=== PATIENT | female | born 1975 | race Caucasian/White ===

== ENCOUNTER → 2017-03-07 | Outpatient (CLI) | payer BC ==
[~2017-03-07] MED LIST: AMPH20TA PO; ARMOUR THYROID PO; ASPI-999 PO; ATOR20TA66 PO; AZIT200S47 PO; BIOT25006 PO; BIOT5CAP10 PO; BUTA-234 PO; BUTA1CAP41 PO; CATHETER FLUSH 10 ML SYR IV PRN; CEFD300C3 PO; CHOL10007 PO; CHOL1LIQ SL; CLAR-19 PO; D50KC PO; DEXAMETHASONE PO; DEXT10TA9 PO; DEXT20TA8 PO; DOXYCYLINE; DULO30CA48 PO; ESCI20TA2; ESCI5TAB; ESTR1TAB24 PO; ESTR2TAB PO; ESTROGEN CREAM; FLDR.1T PO; FLT05NA16 NSEACH; FURO20TA4 PO; FURO40TA4 PO; HEPA50002 SQ; HEPARIN; HYDR-3583 PO; HYDR-3720 PO; HYDR15SO6 PO; HYDR1CAP2 PO; HYDR1TAB PO; IOHEXOL 350 MG/ML 100 ML (OMNIPAQUE 350) VIAL IV ONE; KCL10CCR PO; LACT1CAP62 PO; LIOT5TAB3 PO; LORA10TA7 PO; MAGN400T6 PO; METO-352 PO; METR500T PO; MULT-963 PO; NAPR-243; NFBIOT1000 PO; NITR100C3 PO; NS 100 ML (IVPB) BAG IV ONE; OMEP-10; ONDA8TAB13 PO; OXYC-12 PO; PANT40TA2 PO; POTASSIUM PO; PRCD5U PO; PRD10T; PRD5T PO; SENN25TA27 PO; SPIR25TA3 PO; SUCR1TAB PO; SUCR1TAB36 PO; SULF1TAB38 PO; TETRACAINE LOLLIPOPS PO; TRAM50TA2 PO; VITAMIN B12 IM; [UNRECOGNIZED DRUG - OTHER]
--- NOTE | 2017-03-07 14:12 | Diagnostic Imaging Report ---
PROCEDURE: CT chest with contrast only. TECHNIQUE: Multiple contiguous axial images were obtained through the chest after administration of intravenous contrast. INDICATION: Followup lung nodule. 75 mL of Omnipaque 350 is administered intravenously. COMPARISON: 07/02/15 FINDINGS: There are calcified granulomas seen in the superior segment of the left lower lobe. Previously seen nodules in the left lower lobe and right upper lobe are diminished with no significant remnant is seen suggestive of benign etiology. There is no significant consolidation, mass or suspicious nodule seen at this time. The thoracic aorta is normal in caliber. The heart size is normal. There is no mediastinal mass or lymphadenopathy. No hilar or axillary lymphadenopathy. Sections in the upper abdomen demonstrate cholecystectomy clips. Mild diffuse hepatic steatosis is also noted. The osseous structures demonstrate right convexity scoliotic curvature and mild degenerative changes. IMPRESSION: No acute process. Dictated by: Dictated on workstation # [id number]
== END ==
LOC: RAD 11:47
PROVIDERS: ATTEND Family Medicine
DX: J84.10 Pulmonary fibrosis, unspecified (principal)
CPT/HCPCS: 71260

== ENCOUNTER 2017-03-14 10:00 | Outpatient (CLI) | payer BC ==
[~2017-03-14] VITALS: Ht 170.2 cm; Wt 70.3 kg
[~2017-03-14 10:00] MED LIST changes: -CATHETER FLUSH 10 ML SYR IV PRN; -IOHEXOL 350 MG/ML 100 ML (OMNIPAQUE 350) VIAL IV ONE; -NS 100 ML (IVPB) BAG IV ONE
[2017-03-14] MEDS ORDERED: ATOR10TA66 PO (10:17)
[2017-03-14] MEDS ORDERED: METH20TA PO (10:17)
[2017-03-14] MEDS ORDERED: UBID100C17 PO (10:17)
[2017-03-14] MEDS ORDERED: VENL150C PO (10:17)
[2017-03-14] MEDS ORDERED: MULT-141 PO (10:17)
[2017-03-14] MEDS ORDERED: HYDR25TA4 PO (10:17)
[2017-03-14] MEDS ORDERED: QUET25TA PO (10:17)
[2017-03-15] MEDS ORDERED: PANT40TA2 PO (16:57)
== END 2017-03-14 10:53 ==
LOC: PREOP 10:00
PROVIDERS: ATTEND Surgery
DX: Z01.818 Encounter for other preprocedural examination (principal); K62.5 Hemorrhage of anus and rectum; K21.9 Gastro-esophageal reflux disease without esophagitis

== ENCOUNTER 2017-03-15 14:04 | Day surgery (SDC) | payer BC ==
[~2017-03-15] VITALS: Ht 170.2 cm; Wt 70.3 kg
[~2017-03-15 14:04] MED LIST changes: +ATOR10TA66 PO; +HYDR25TA4 PO; +METH20TA PO; +MULT-141 PO; +QUET25TA PO; +UBID100C17 PO; +VENL150C PO
--- OUTSIDE RECORDS SUMMARY | 2017-03-15 14:07 | XMS REPORT | Continuity of Care Document ---
Author Author [facility] Organization [facility] Address Unknown Phone Unavailable Care Team Providers Care Board Machine Set Up Operator Name Role Phone Leon Reyes III PCP [phone] Source Comments Some departments are not documenting in the electronic medical record. If you do not see the information that you expected, contact Release of Information in the Health Information Management department at [phone] for further assistance in locating additional records.[facility] Active Allergies and Adverse Reactions Allergen Noted Date Severity Reactions Comments Adhesive Tape (Rosins) 02/06/2014 Medium RASH Mold Low SEE COMMENTS congestion and headache Pcn 03/01/2013 Medium RASH Pt has tolerated Rocephin in the past Plaquenil 08/28/2015 Medium HIVES Hives all over entire body Current Medications Prescription Sig. Disp. Refills Start End Date Status Date lactobacillus rhamnosus Take 1 Cap by mouth daily Active (GG) (CULTURELLE) 10 with breakfast. billion cell cap butalbital/acetaminophen/ Take 1 Tab by mouth every Active caffeine(+) (FIORICET) 4 hours as needed. 50/325/40 mg tablet dextroamphetamine-ampheta Take 30 mg by mouth twice Active mine (ADDERALL) 20 mg daily tablet estradiol (ESTRACE) 1 mg Take 1 mg by mouth daily. Active tablet Indications: patient stated takes .5 mg every other day MULTIVITAMINS WITH Take 1 Tab by mouth Active FLUORIDE (MULTI-VITAMIN daily. PO) hydrochlorothiazide Take 25 mg by mouth Active (HYDRODIURIL) 25 mg daily. tablet CHOLECALCIFEROL (VITAMIN Place 3 Drops under Active D3) (VITAMIN D3 PO) tongue daily. Each drop is 1000 units predniSONE (DELTASONE) 5 20mg/d x 3 days, 15mg/d x 90 Tab 2 05/18/20 Active mg tablet 3 d, 10mg/d x 3 d, then 16 5mg/d and stay at this dose until f/u Active Problems Problem Noted Date Nonspecific abnormal findings on imaging examination of skull and head 08/28 Overview: MRI unchanged from February 2015 Pain of both hip joints 08/28/2015 Arthralgia of both knees 08/28/2015 Intractable migraine without aura and without status migrainosus 08/28/2015 Cervical spondylitis (HCC) 07/15/2015 Left-sided thoracic back pain 07/15/2015 Disseminated Lyme disease 03/08/2013 Overview: On Claforan 03/08/13 Starts Rocephin for a month 03/15/13 L ast Assessment & Plan: No evidence of intraocular inflammation; does have a papillary conjunctivitis Currently being treated as per Dr. Cesar with IV thru PICC Pt out of Doxycycline; sent to pharmacy in [place]. Rec 100mg BID for now. 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 Agree with daily disposables, but could consider another brand. 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 03/08/2013 Overview: GPC 2+ OD probably from DWSCL 3+ OS due to shell L ast Assessment & Plan: Continue off DWCL Add pataday [facility] [place] shell Resolved Problems Problem Noted Date Resolved Date Cervical stenosis of spine 02/25/2014 07/15/2015 Social History Tobacco Use Types Packs/Day Years Used Date Never Smoker Smokeless Tobacco: Never Used Alcohol Use Drinks/Week oz/Week Comments Yes 0 Standard 0.0 Occassional drinks or equivalent Last Filed Vital Signs Vital Sign Reading Time Taken Blood Pressure 130/82 03/24/2016 10:26 AM CDT Pulse 88 03/24/2016 10:26 AM CDT Temperature 36.8 C (98.3 F) 03/24/2016 10:26 AM CDT Respiratory Rate 20 01/14/2016 7:51 AM CDT Height 1.702 m (5' 7") 05/10/2016 8:08 AM CDT Weight 70.308 kg (155 lb) 05/10/2016 8:08 AM CDT Body Mass Index 24.27 05/10/2016 8:08 AM CDT Oxygen Saturation 100% 01/14/2016 7:51 AM CDT Plan of Care Health Maintenance Due Date Last Done Comments Physical (Comprehensive) 1981 Exam Pertussis Vaccine 1985 Tetanus Vaccine 1991 Cervical Cancer Screening 1995 Breast Cancer Screening 2014 Influenza Vaccine 05/19/2017 Results from Last 3 Months Not on file
--- OUTSIDE RECORDS SUMMARY | 2017-03-15 14:10 | XMS REPORT | Continuity of Care Document ---
Author Author [facility] Organization [facility] Address Unknown Phone Unavailable Allergies Active Description Code Type Severity Reaction Onset Reported/Identified Relationship to Patient Clinical Status Yes hydroxychloroquine [id number] Drug Allergy Unknown N/A 07/01/2015 Yes Penicillins [id number] Drug Allergy Unknown N/A 07/01/2015 Medications Problems Date Dx Coded Attending Type Code Diagnosis Diagnosed By 02/24/2010 Ot 338.29 02/24/2010 Ot 617.0 02/24/2010 Ot 617.1 02/24/2010 Ot 618.4 02/24/2010 Ot 625.6 02/24/2010 Ot 625.8 02/24/2010 Ot 626.8 04/23/2010 Ot 682.2 04/23/2010 Ot 911.5 04/23/2010 Ot E000.8 04/23/2010 Ot E849.0 04/23/2010 Ot E906.4 04/25/2010 Ot 616.10 04/25/2010 Ot 911.4 04/25/2010 Ot E000.8 04/25/2010 Ot E849.0 04/25/2010 Ot E906.4 04/25/2010 Ot V06.1 09/05/2011 Ot 255.10 HYPERALDOSTERONISM, UNSPECIFIED 09/05/2011 Ot 401.9 HYPERTENSION NOS 09/05/2011 Ot 458.9 HYPOTENSION NOS 09/05/2011 Ot 782.3 EDEMA 09/13/2012 Ot 465.9 ACUTE URI NOS 09/13/2012 Ot 786.2 COUGH 05/16/2013 KAI LIU Ot 088.81 LYME DISEASE 06/10/2013 GERMAINE MADDEN, BUSTER Cooney Ot 465.9 ACUTE URI NOS 06/10/2013 GERMAINE MADDEN, BUSTER Cooney Ot 599.0 URIN TRACT INFECTION NOS 06/10/2013 GERMAINE MADDEN, BUSTER Cooney Ot 786.50 CHEST PAIN NOS 07/09/2013 SUSHIL SANCHEZ FLOWER STRIPPER Ot 825.25 FX METATARSAL-CLOSED 07/09/2013 SUSHIL SANCHEZ FLOWER STRIPPER Ot 959.7 LOWER LEG INJURY NOS 07/09/2013 SUSHIL SANCHEZ FLOWER STRIPPER Ot E000.8 OTHER EXTERNAL CAUSE STATUS 07/09/2013 SUSHIL SANCHEZ FLOWER STRIPPER Ot E849.0 ACCIDENT IN HOME 07/09/2013 SUSHIL SANCHEZ FLOWER STRIPPER Ot E885.9 FALL FROM SLIPPING, TRIPPING, OR STUMBLI 09/19/2013 GERMAINE MADDEN, BUSTER Cooney Ot 729.5 PAIN IN LIMB 04/10/2014 YAMILETH MADDEN, PREM Neely Ot 346.90 MIGRAINE UNSPECIFIED W/O INTRACT MGRN W/ 04/10/2014 PREM CARSON MD Ot 780.4 DIZZINESS AND GIDDINESS 10/11/2014 Ot 785.1 10/11/2014 Ot 786.59 10/11/2014 Ot 836.0 10/11/2014 Ot 844.1 10/11/2014 Ot E000.8 10/11/2014 Ot E003.2 10/11/2014 Ot E029.9 10/11/2014 Ot E849.6 10/11/2014 Ot E885.4 10/11/2014 Ot 726.61 10/11/2014 Ot 836.0 10/11/2014 Ot E000.8 10/11/2014 Ot E003.2 10/11/2014 Ot E029.9 10/11/2014 Ot E849.6 10/11/2014 Ot E885.4 10/11/2014 Ot V72.63 10/11/2014 Ot 621.30 10/11/2014 Ot 625.8 10/11/2014 Ot 626.4 10/11/2014 Ot 618.4 10/11/2014 Ot 625.6 10/11/2014 Ot 626.8 10/11/2014 Ot V72.63 10/11/2014 Ot V72.81 10/11/2014 Ot 719.44 10/11/2014 Ot 785.1 10/11/2014 Ot 611.72 10/11/2014 Ot 786.50 10/11/2014 Ot 611.72 10/11/2014 Ot 625.9 10/11/2014 Ot 537.9 10/11/2014 Ot 793.6 10/11/2014 Ot 255.42 10/11/2014 Ot 790.99 10/11/2014 Ot 255.10 10/11/2014 Ot 401.9 10/11/2014 Ot 458.9 10/11/2014 Ot 782.3 10/11/2014 Ot 346.90 10/11/2014 Ot 368.9 10/11/2014 Ot 781.2 10/11/2014 Ot 785.6 10/11/2014 Ot 785.9 10/11/2014 Ot 473.9 10/11/2014 Ot 785.6 10/11/2014 CHARLOTTE LIU DO Ot 719.43 10/11/2014 CHARLOTTE LIU DO Ot 719.45 10/11/2014 CHARLOTTE LIU DO Ot 724.2 10/11/2014 KAI LIU E 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 Ot 379.91 10/11/2014 Ot 088.81 10/11/2014 KAYLEY MADDEN, IRVING P Ot 470 10/11/2014 KAYLEY MADDEN, IRVING P Ot 473.9 10/11/2014 KAYLEY MADDEN, IRVING P Ot 478.0 10/11/2014 KAYLEY MADDEN, IRVING P Ot 780.79 10/11/2014 KAYLEY MADDEN, IRVING P Ot V12.09 10/11/2014 KAYLEY MADDEN, IRVING P Ot V72.63 10/11/2014 KAYLEY MADDEN, IRVING P Ot V72.81 10/11/2014 KAYLEY MADDEN, IRVING P Ot V74.8 10/11/2014 KAYLEY MADDEN, IRVING P Ot 470 10/11/2014 KAYLEY MADDEN, IRVING P Ot 473.2 10/11/2014 KAYLEY MADDEN, IRVING P Ot 474.00 10/11/2014 KAYLEY MADDEN, IRVING P Ot 478.0 10/11/2014 KAI LIUP Ot 723.0 10/11/2014 CHARLOTTE LIU DO Ot 780.93 10/11/2014 CHARLOTTE LIU DO Ot 782.0 10/11/2014 Ot 255.10 10/11/2014 Ot 401.9 10/11/2014 Ot 458.9 10/11/2014 Ot 782.3 10/11/2014 Ot 088.81 10/12/2014 CHARLOTTE LIU DO Ot 088.81 LYME DISEASE 10/12/2014 CHARLOTTE LIU DO Ot 346.90 MIGRAINE UNSPECIFIED W/O INTRACT MGRN W/ 10/12/2014 CHARLOTTE LIU DO Ot 401.9 HYPERTENSION NOS 10/12/2014 ALEXA KNUTSON [place] Torrey Ot 424.0 MITRAL VALVE DISORDER 10/12/2014 CHARLOTTE LIU DO Ot 781.0 ABN INVOLUN MOVEMENT NEC 10/12/2014 CHARLOTTE LIU DO Ot 781.94 FACIAL WEAKNESS 10/13/2014 ALEXA KNUTSON [place] Ot 780.93 10/13/2014 ALEXA KNUTSON [place] Torrey Ot 782.0 11/12/2014 Ot 836.0 11/12/2014 Ot 844.1 11/12/2014 Ot E000.8 11/12/2014 Ot E003.2 11/12/2014 Ot E029.9 11/12/2014 Ot E849.6 11/12/2014 Ot E885.4 11/12/2014 Ot 726.61 11/12/2014 Ot 836.0 11/12/2014 Ot E000.8 11/12/2014 Ot E003.2 11/12/2014 Ot E029.9 11/12/2014 Ot E849.6 11/12/2014 Ot E885.4 11/12/2014 Ot V72.63 11/12/2014 Ot 621.30 11/12/2014 Ot 625.8 11/12/2014 Ot 626.4 11/12/2014 Ot 618.4 11/12/2014 Ot 625.6 11/12/2014 Ot 626.8 11/12/2014 Ot V72.63 11/12/2014 Ot V72.81 11/12/2014 Ot 719.44 11/12/2014 Ot 785.1 11/12/2014 Ot 611.72 11/12/2014 Ot 786.50 11/12/2014 Ot 611.72 11/12/2014 Ot 625.9 11/12/2014 Ot 537.9 11/12/2014 Ot 793.6 11/12/2014 Ot 255.42 11/12/2014 Ot 790.99 11/12/2014 Ot 255.10 11/12/2014 Ot 401.9 11/12/2014 Ot 458.9 11/12/2014 Ot 782.3 11/12/2014 Ot 346.90 11/12/2014 Ot 368.9 11/12/2014 Ot 781.2 11/12/2014 Ot 785.6 11/12/2014 Ot 785.9 11/12/2014 Ot 473.9 11/12/2014 Ot 785.6 11/12/2014 CHARLOTTE LIU DO Ot 719.43 11/12/2014 CHARLOTTE LIU DO Ot 719.45 11/12/2014 CHARLOTTE LIU DO Ot 724.2 11/12/2014 KAI LIU Ot 379.91 11/12/2014 Ot 088.81 11/12/2014 KAYLEY MADDEN, IRVING P Ot 470 11/12/2014 KAYLEY MADDEN, IRVING P Ot 473.9 11/12/2014 KAYLEY MADDEN, IRVING P Ot 478.0 11/12/2014 KAYLEY MADDEN, IRVING P Ot 780.79 11/12/2014 KAYLEY MADDEN, IRVING P Ot V12.09 11/12/2014 KAYLEY MADDEN, IRVING P Ot V72.63 11/12/2014 KAYLEY MADDEN, IRVING P Ot V72.81 11/12/2014 KAYLEY MADDEN, IRVING P Ot V74.8 11/12/2014 KAYLEY MADDEN, IRVING P Ot 470 11/12/2014 KAYLEY MADDEN, IRVING P Ot 473.2 11/12/2014 KAYLEY MADDEN, IRVING P Ot 474.00 11/12/2014 KAYLEY MADDEN, IRVING P Ot 478.0 11/12/2014 KAI LIU Ot 723.0 11/12/2014 CHARLOTTE LIU DO Ot 780.93 11/12/2014 CHARLOTTE LIU DO Ot 782.0 11/16/2014 Ot 346.90 MIGRAINE UNSPECIFIED W/O INTRACT MGRN W/ 11/16/2014 Ot 461.9 ACUTE SINUSITIS NOS 01/08/2015 Ot 836.0 01/08/2015 Ot 844.1 01/08/2015 Ot E000.8 01/08/2015 Ot E003.2 01/08/2015 Ot E029.9 01/08/2015 Ot E849.6 01/08/2015 Ot E885.4 01/08/2015 Ot 726.61 01/08/2015 Ot 836.0 01/08/2015 Ot E000.8 01/08/2015 Ot E003.2 01/08/2015 Ot E029.9 01/08/2015 Ot E849.6 01/08/2015 Ot E885.4 01/08/2015 Ot V72.63 01/08/2015 Ot 621.30 01/08/2015 Ot 625.8 01/08/2015 Ot 626.4 01/08/2015 Ot 618.4 01/08/2015 Ot 625.6 01/08/2015 Ot 626.8 01/08/2015 Ot V72.63 01/08/2015 Ot V72.81 01/08/2015 Ot 719.44 01/08/2015 Ot 785.1 01/08/2015 Ot 611.72 01/08/2015 Ot 786.50 01/08/2015 Ot 611.72 01/08/2015 Ot 625.9 01/08/2015 Ot 537.9 01/08/2015 Ot 793.6 01/08/2015 Ot 255.42 01/08/2015 Ot 790.99 01/08/2015 Ot 255.10 01/08/2015 Ot 401.9 01/08/2015 Ot 458.9 01/08/2015 Ot 782.3 01/08/2015 Ot 346.90 01/08/2015 Ot 368.9 01/08/2015 Ot 781.2 01/08/2015 Ot 785.6 01/08/2015 Ot 785.9 01/08/2015 Ot 473.9 01/08/2015 Ot 785.6 01/08/2015 CHARLOTTE LIU DO Ot 719.43 01/08/2015 CHARLOTTE LIU DO Ot 719.45 01/08/2015 CHARLOTTE LIU DO Ot 724.2 01/08/2015 KAI LIU Ot 379.91 01/08/2015 Ot 088.81 01/08/2015 KAYLEY MADDEN, IRVING Esquivel Ot 470 01/08/2015 KAYLEY MADDEN, IRVING Esquivel Ot 473.9 01/08/2015 KAYLEY MADDEN, IRVING Esquivel Ot 478.0 01/08/2015 KAYLEY MADDEN, IRVING Esquivel Ot 780.79 01/08/2015 KAYLEY MADDEN, IRVING Esquivel Ot V12.09 01/08/2015 KAYLEY MADDEN, IRVING Esquivel Ot V72.63 01/08/2015 KAYLEY MADDEN, IRVING P Ot V72.81 01/08/2015 KAYLEY MADDEN, IRVING Alvin Ot V74.8 01/08/2015 KAYLEY MADDEN, IRVING P Ot 470 01/08/2015 KAYLEY MADDEN, IRVING P Ot 473.2 01/08/2015 KAYLEY MADDEN, IRVING Esquivel Ot 474.00 01/08/2015 KAYLEY MADDEN, IRVING Esquivel Ot 478.0 01/08/2015 KAI LIU Ot 723.0 01/08/2015 CHARLOTTE LIU DO Ot 780.93 01/08/2015 CHARLOTTE LIU DO Ot 782.0 01/12/2015 Ot 836.0 01/12/2015 Ot 844.1 01/12/2015 Ot E000.8 01/12/2015 Ot E003.2 01/12/2015 Ot E029.9 01/12/2015 Ot E849.6 01/12/2015 Ot E885.4 01/12/2015 Ot 726.61 01/12/2015 Ot 836.0 01/12/2015 Ot E000.8 01/12/2015 Ot E003.2 01/12/2015 Ot E029.9 01/12/2015 Ot E849.6 01/12/2015 Ot E885.4 01/12/2015 Ot V72.63 01/12/2015 Ot 621.30 01/12/2015 Ot 625.8 01/12/2015 Ot 626.4 01/12/2015 Ot 618.4 01/12/2015 Ot 625.6 01/12/2015 Ot 626.8 01/12/2015 Ot V72.63 01/12/2015 Ot V72.81 01/12/2015 Ot 719.44 01/12/2015 Ot 785.1 01/12/2015 Ot 611.72 01/12/2015 Ot 786.50 01/12/2015 Ot 611.72 01/12/2015 Ot 625.9 01/12/2015 Ot 537.9 01/12/2015 Ot 793.6 01/12/2015 Ot 255.42 01/12/2015 Ot 790.99 01/12/2015 Ot 255.10 01/12/2015 Ot 401.9 01/12/2015 Ot 458.9 01/12/2015 Ot 782.3 01/12/2015 Ot 346.90 01/12/2015 Ot 368.9 01/12/2015 Ot 781.2 01/12/2015 Ot 785.6 01/12/2015 Ot 785.9 01/12/2015 Ot 473.9 01/12/2015 Ot 785.6 01/12/2015 CHARLOTTE LIU DO Ot 719.43 01/12/2015 CHARLOTTE LIU DO Ot 719.45 01/12/2015 CHARLOTTE LIU DO Ot 724.2 01/12/2015 KAI LIU Ot 379.91 01/12/2015 Ot 088.81 01/12/2015 KAYLEY MADDEN, IRVING P Ot 470 01/12/2015 KAYLEY MADDEN, IRVING P Ot 473.9 01/12/2015 KAYLEY MADDEN, IRVING P Ot 478.0 01/12/2015 KAYLEY MADDEN, IRVING P Ot 780.79 01/12/2015 KAYLEY MADDEN, IRVING P Ot V12.09 01/12/2015 KAYLEY MADDEN, IRVING P Ot V72.63 01/12/2015 KAYLEY MADDEN, IRVING P Ot V72.81 01/12/2015 KAYLEY MADDEN, IRVING P Ot V74.8 01/12/2015 KAYLEY MADDEN, IRVING P Ot 470 01/12/2015 KAYLEY MADDEN, IRVING P Ot 473.2 01/12/2015 KAYLEY MADDEN, IRVING P Ot 474.00 01/12/2015 KAYLEY MADDEN, IRVING P Ot 478.0 01/12/2015 KAI LIU Ot 723.0 01/12/2015 CHARLOTTE LIU DO Ot 780.93 01/12/2015 CHARLOTTE LIU DO Ot 782.0 03/16/2015 Ot 836.0 03/16/2015 Ot 844.1 03/16/2015 Ot E000.8 03/16/2015 Ot E003.2 03/16/2015 Ot E029.9 03/16/2015 Ot E849.6 03/16/2015 Ot E885.4 03/16/2015 Ot 726.61 03/16/2015 Ot 836.0 03/16/2015 Ot E000.8 03/16/2015 Ot E003.2 03/16/2015 Ot E029.9 03/16/2015 Ot E849.6 03/16/2015 Ot E885.4 03/16/2015 Ot V72.63 03/16/2015 Ot 621.30 03/16/2015 Ot 625.8 03/16/2015 Ot 626.4 03/16/2015 Ot 618.4 03/16/2015 Ot 625.6 03/16/2015 Ot 626.8 03/16/2015 Ot V72.63 03/16/2015 Ot V72.81 03/16/2015 Ot 719.44 03/16/2015 Ot 785.1 03/16/2015 Ot 611.72 03/16/2015 Ot 786.50 03/16/2015 Ot 611.72 03/16/2015 Ot 625.9 03/16/2015 Ot 537.9 03/16/2015 Ot 793.6 03/16/2015 Ot 255.42 03/16/2015 Ot 790.99 03/16/2015 Ot 255.10 03/16/2015 Ot 401.9 03/16/2015 Ot 458.9 03/16/2015 Ot 782.3 03/16/2015 Ot 346.90 03/16/2015 Ot 368.9 03/16/2015 Ot 781.2 03/16/2015 Ot 785.6 03/16/2015 Ot 785.9 03/16/2015 Ot 473.9 03/16/2015 Ot 785.6 03/16/2015 CHARLOTTE LIU DO Ot 719.43 03/16/2015 CHARLOTTE LIU DO Ot 719.45 03/16/2015 CHARLOTTE LIU DO Ot 724.2 03/16/2015 KAI LIU Ot 379.91 03/16/2015 Ot 088.81 03/16/2015 KAYLEY MADDEN, IRVING P Ot 470 03/16/2015 KAYLEY MADDEN, IRVING P Ot 473.9 03/16/2015 KAYLEY MADDEN, IRVING P Ot 478.0 03/16/2015 KAYLEY MADDEN, IRVING P Ot 780.79 03/16/2015 KAYLEY MADDEN, IRVING P Ot V12.09 03/16/2015 KAYLEY MADDEN, IRVING Esquivel Ot V72.63 03/16/2015 KAYLEY MADDEN, IRVING P Ot V72.81 03/16/2015 KAYLEY MADDEN, IRVING P Ot V74.8 03/16/2015 KAYLEY MADDEN, IRVING Esquivel Ot 470 03/16/2015 KAYLEY MADDEN, IRVIGN Esquivel Ot 473.2 03/16/2015 KAYLEY MADDEN, IRVING Esquivel Ot 474.00 03/16/2015 KAYLEY MADDEN, IRVING Esquivel Ot 478.0 03/16/2015 KAI LIU Ot 723.0 03/16/2015 CHARLOTTE LIU DO Ot 780.93 03/16/2015 CHARLOTTE LIU DO Ot 782.0 03/17/2015 CHARLOTTE RODGERS DO Ot 346.90 MIGRAINE UNSPECIFIED W/O INTRACT MGRN W / 03/17/2015 CHARLOTTE RODGERS DO Ot 784.0 HEADACHE 05/04/2015 CHARLOTTE LIU DO Ot 611.71 05/12/2015 Ot 621.30 05/12/2015 Ot 625.8 05/12/2015 Ot 626.4 05/12/2015 Ot 618.4 05/12/2015 Ot 625.6 05/12/2015 Ot 626.8 05/12/2015 Ot V72.63 05/12/2015 Ot V72.81 05/12/2015 Ot 719.44 05/12/2015 Ot 785.1 05/12/2015 Ot 611.72 05/12/2015 Ot 786.50 05/12/2015 Ot 611.72 05/12/2015 Ot 625.9 05/12/2015 Ot 537.9 05/12/2015 Ot 793.6 05/12/2015 Ot 255.42 05/12/2015 Ot 790.99 05/12/2015 Ot 255.10 05/12/2015 Ot 401.9 05/12/2015 Ot 458.9 05/12/2015 Ot 782.3 05/12/2015 Ot 346.90 05/12/2015 Ot 368.9 05/12/2015 Ot 781.2 05/12/2015 Ot 785.6 05/12/2015 Ot 785.9 05/12/2015 Ot 473.9 05/12/2015 Ot 785.6 05/12/2015 CHARLOTTE LIU DO Ot 719.43 05/12/2015 CHARLOTTE LIU DO Ot 719.45 05/12/2015 CHARLOTTE LIU DO Ot 724.2 05/12/2015 KAI LIU E 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 Ot 379.91 05/12/2015 Ot 088.81 05/12/2015 KAYLEY MADDEN, IRVING P Ot 470 05/12/2015 KAYLEY MADDEN, IRVING P Ot 473.9 05/12/2015 KAYLEY MADDEN, IRVING P Ot 478.0 05/12/2015 KAYLEY MADDEN, IRVING P Ot 780.79 05/12/2015 KAYLEY MADDEN, IRVING P Ot V12.09 05/12/2015 KAYLEY MADDEN, IRVING P Ot V72.63 05/12/2015 KAYLEY MADDEN, IRVING P Ot V72.81 05/12/2015 KAYLEY MADDEN, IRVING P Ot V74.8 05/12/2015 KAYLEY MADDEN, IRVING P Ot 470 05/12/2015 KAYLEY MADDEN, IRVING P Ot 473.2 05/12/2015 KAYLEY MADDEN, IRVING P Ot 474.00 05/12/2015 KAYLEY MADDEN, IRVING P Ot 478.0 05/12/2015 KAI LIU E 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 Ot 723.0 05/12/2015 CHARLOTTE LIU DO Ot 780.93 05/12/2015 CHARLOTTE LIU DO Ot 782.0 05/12/2015 CHARLOTTE LIU DO Ot 611.71 05/15/2015 CHARLOTTE LIU DO Ot 611.71 06/17/2015 KAI LIU E 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 Ot 723.4 06/17/2015 KAI LIU E 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 Ot 787.20 07/01/2015 Ot 621.30 07/01/2015 Ot 625.8 07/01/2015 Ot 626.4 07/01/2015 Ot 618.4 07/01/2015 Ot 625.6 07/01/2015 Ot 626.8 07/01/2015 Ot V72.63 07/01/2015 Ot V72.81 07/01/2015 Ot 719.44 07/01/2015 Ot 785.1 07/01/2015 Ot 611.72 07/01/2015 Ot 786.50 07/01/2015 Ot 611.72 07/01/2015 Ot 625.9 07/01/2015 Ot 537.9 07/01/2015 Ot 793.6 07/01/2015 Ot 255.42 07/01/2015 Ot 790.99 07/01/2015 Ot 255.10 07/01/2015 Ot 401.9 07/01/2015 Ot 458.9 07/01/2015 Ot 782.3 07/01/2015 Ot 346.90 07/01/2015 Ot 368.9 07/01/2015 Ot 781.2 07/01/2015 Ot 785.6 07/01/2015 Ot 785.9 07/01/2015 Ot 473.9 07/01/2015 Ot 785.6 07/01/2015 CHARLOTTE LIU DO Ot 719.43 07/01/2015 CHARLOTTE LIU DO Ot 719.45 07/01/2015 CHARLOTTE LIU DO Ot 724.2 07/01/2015 KAI LIU E 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 Ot 379.91 07/01/2015 Ot 088.81 07/01/2015 KAYLEY MADDEN, IRVING P Ot 470 07/01/2015 KAYLEY MADDEN, IRVING P Ot 473.9 07/01/2015 KAYLEY MADDEN, IRVING P Ot 478.0 07/01/2015 KAYLEY MADDEN, IRVING P Ot 780.79 07/01/2015 KAYLEY MADDEN, IRVING P Ot V12.09 07/01/2015 KAYLEY MADDEN, IRVING P Ot V72.63 07/01/2015 KAYLEY MADDEN, IRVING P Ot V72.81 07/01/2015 KAYLEY MADDEN, IRVING P Ot V74.8 07/01/2015 KAYLEY MADDEN, IRVING P Ot 470 07/01/2015 KAYLEY MADDEN, IRVING P Ot 473.2 07/01/2015 KAYLEY MADDEN, IRVING P Ot 474.00 07/01/2015 KAYLEY MADDEN, IRVING P Ot 478.0 07/01/2015 KAI LIU E 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 Ot 723.0 07/01/2015 CHARLOTTE LIU DO Ot 780.93 07/01/2015 CHARLOTTE LIU DO Ot 782.0 07/01/2015 CHARLOTTE LIU DO Ot 611.71 07/01/2015 KAI LIU E 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 Ot 723.4 07/01/2015 KAI LIU E 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 Ot 787.20 07/01/2015 JUAN F MADDEN FACC, ALI FACP CCDS Ot A69.20 07/01/2015 JUAN F MADDEN FACC, ALI FACP CCDS Ot R00.2 07/01/2015 JUAN F MADDEN FACC, ALI FACP CCDS Ot R06.00 07/01/2015 JUAN F MADDEN FACC, ALI FACP CCDS Ot R55 07/01/2015 JUAN F MADDEN FACC, ALI FACP CCDS Ot A69.20 07/01/2015 JUAN F MADDEN FACC, ALI FACP CCDS Ot R00.2 07/01/2015 JUAN F MADDEN FACC, ALI FACP CCDS Ot R06.00 07/01/2015 JUAN F MADDEN FACC, ALI FACP CCDS Ot R55 07/01/2015 Ot 255.10 07/01/2015 Ot 401.9 07/01/2015 Ot 458.9 07/01/2015 Ot 782.3 07/01/2015 Ot 088.81 07/01/2015 JUAN F MADDEN FACC, ALI FACP CCDS Ot A69.20 07/01/2015 JUAN F MADDEN FACC, ALI FACP CCDS Ot R00.2 07/01/2015 JUAN F AYALAC, ALI FACP CCDS Ot R06.00 07/01/2015 JUAN F AYALAC, ALI FACP CCDS Ot R55 07/03/2015 CHARLOTTE LIU DO Ot E87.6 HYPOKALEMIA 07/03/2015 CHARLOTTE LIU DO Ot G43.909 MIGRAINE, UNSP, NOT INTRACTABLE, WITHOUT 07/03/2015 CHARLOTTE LIU DO Ot K20.9 ESOPHAGITIS, UNSPECIFIED 07/03/2015 CHARLOTTE LIU DO Ot K22.2 ESOPHAGEAL OBSTRUCTION 07/13/2015 JUAN F AYALAC, ALI FACP CCDS Ot A69.20 07/13/2015 JUAN F AYALAC, ALI FACP CCDS Ot R00.2 07/13/2015 JUAN F MADDEN FACC, ALI FACP CCDS Ot R06.00 07/13/2015 JUAN F MADDEN FACC, ALI FACP CCDS Ot R55 07/15/2015 JUAN F MADDEN FACC, ALI FACP CCDS Ot A69.20 07/15/2015 JUAN F MADDEN FACC, ALI FACP CCDS Ot R00.2 07/15/2015 JUAN F MADDEN FACC, ALI FACP CCDS Ot R06.00 07/15/2015 JUAN F MADDEN FACC, ALI FACP CCDS Ot R55 07/16/2015 JUAN F AYALA, ALI FACP CCDS Ot Q24.5 MALFORMATION OF CORONARY VESSELS 07/16/2015 JUAN F MADDEN FACC, ALI FACP CCDS Ot R00.2 PALPITATIONS 07/16/2015 JUAN F MADDEN FACC, ALI FACP CCDS Ot R06.02 SHORTNESS OF BREATH 07/16/2015 JUAN F MADDEN FACC, ALI FACP CCDS Ot R07.89 OTHER CHEST PAIN 07/16/2015 JUAN F MADDEN FACC, ALI FACP CCDS Ot Z79.899 OTHER GREENS KEEPER (CURRENT) DRUG THERAPY 07/21/2015 CHARLOTET LIU DO Ot M51.34 08/05/2015 JUAN F MADDEN FACC, ALI FACP CCDS Ot A69.20 08/05/2015 JUAN F MADDEN FACC, ALI FACP CCDS Ot R00.2 08/05/2015 JUAN F MADDEN FACC, ALI FACP CCDS Ot R06.00 08/05/2015 JUAN F AYALA, ALI FACP CCDS Ot R55 09/09/2015 CHARLOTTE LIU DO Ot R06.00 09/28/2015 JUAN F AYALA, ALI FACP CCDS Ot A69.20 LYME DISEASE, UNSPECIFIED 09/28/2015 JUAN F AYALA, ALI FACP CCDS Ot R00.2 PALPITATIONS 09/28/2015 JUAN F AYALA, ALI FACP CCDS Ot R06.00 DYSPNEA, UNSPECIFIED 09/28/2015 JUAN F AYALA, ALI FACP CCDS Ot R55 SYNCOPE AND COLLAPSE 03/30/2016 Ot 719.44 JOINT PAIN-HAND 03/30/2016 Ot 785.1 PALPITATIONS 03/30/2016 Ot 611.72 LUMP OR MASS IN BREAST 03/30/2016 Ot 786.50 CHEST PAIN NOS 03/30/2016 Ot 611.72 LUMP OR MASS IN BREAST 03/30/2016 Ot 625.9 FEM GENITAL SYMPTOMS NOS 03/30/2016 Ot 537.9 GASTRODUODENAL DIS NOS 03/30/2016 Ot 793.6 NOSP (ABN) FINDINGS ON RADIOLOGICAL OT 03/30/2016 Ot 255.42 MINERALOCORTICOID DEFICIENCY 03/30/2016 Ot 790.99 BLOOD EXAM - OTH NONSPECIFIC FINDINGS 03/30/2016 Ot 255.10 HYPERALDOSTERONISM, UNSPECIFIED 03/30/2016 Ot 401.9 HYPERTENSION NOS 03/30/2016 Ot 458.9 HYPOTENSION NOS 03/30/2016 Ot 782.3 EDEMA 03/30/2016 Ot 346.90 MIGRAINE UNSPECIFIED W/O INTRACT MGRN W/ 03/30/2016 Ot 368.9 VISUAL DISTURBANCE NOS 03/30/2016 Ot 781.2 ABNORMALITY OF GAIT 03/30/2016 Ot 785.6 ENLARGEMENT LYMPH NODES 03/30/2016 Ot 785.9 CARDIOVAS SYS SYMP NEC 03/30/2016 Ot 473.9 CHRONIC SINUSITIS NOS 03/30/2016 Ot 785.6 ENLARGEMENT LYMPH NODES 03/30/2016 CHARLOTTE LIU DO Ot 719.43 JOINT PAIN-FOREARM 03/30/2016 CHARLOTTE LIU DO Ot 719.45 JOINT PAIN-PELVIS 03/30/2016 CHARLOTTE LIU DO Ot 724.2 LUMBAGO 03/30/2016 KAI LIU Ot 379.91 PAIN IN OR AROUND EYE 03/30/2016 Ot 088.81 LYME DISEASE 03/30/2016 IRVING ZALDIVAR MD Ot 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 03/30/2016 IRVING ZALDIVAR MD Ot 473.9 CHRONIC SINUSITIS NOS 03/30/2016 IRVING ZALDIVAR MD Ot 478.0 HYPERTRPH NASAL TURBINAT 03/30/2016 IRVING ZALDIVAR MD Ot 780.79 OTH MALAISE FATIGUE 03/30/2016 IRVING ZALDIVAR MD Ot V12.09 PERSONAL HISTORY OTH SPEC INFECT ELIZABETH 03/30/2016 IRVING ZALDIVAR MD Ot V72.63 PRE-PROCEDURAL LABORATORY EXAMINATION 03/30/2016 IRVING ZALDIVAR MD Ot V72.81 [id number] CARDIOVASCULAR 03/30/2016 IRVING ZALDIVAR MD Ot V74.8 SCREEN-BACTERIAL DIS NEC 03/30/2016 IRVING ZALDIVAR MD Ot 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 03/30/2016 IRVING ZALDIVAR MD Ot 473.2 CHR ETHMOIDAL SINUSITIS 03/30/2016 IRVING ZALDIVAR MD Ot 474.00 CHRONIC TONSILLITIS 03/30/2016 IRVING ZALDIVAR MD Ot 478.0 HYPERTRPH NASAL TURBINAT 03/30/2016 LIU, KAI L E 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 Ot 723.0 CERVICAL SPINAL STENOSIS 03/30/2016 CHARLOTTE LIU DO Ot 780.93 MEMORY LOSS 03/30/2016 CHARLOTTE LIU DO Ot 782.0 SKIN SENSATION DISTURB 03/30/2016 CHARLOTTE LIU DO Ot 611.71 MASTODYNIA 03/30/2016 KAI LIU E 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 Ot 723.4 BRACHIAL NEURITIS NOS 03/30/2016 KAI LIU E 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 Ot 787.20 DYSPHAGIA, UNSPECIFIED 03/30/2016 JUAN F AYALAC, ALI FACP CCDS Ot A69.20 LYME DISEASE, UNSPECIFIED 03/30/2016 JUAN F MADDEN FACC, ALI FACP CCDS Ot R00.2 PALPITATIONS 03/30/2016 JUAN F AYALAC, ALI FACP CCDS Ot R06.00 DYSPNEA, UNSPECIFIED 03/30/2016 JUAN F MADDEN FACC, ALI FACP CCDS Ot R55 SYNCOPE AND COLLAPSE 03/30/2016 JUAN F MADDEN FACC, ALI FACP CCDS Ot A69.20 LYME DISEASE, UNSPECIFIED 03/30/2016 JUAN F MADDEN FACC, ALI FACP CCDS Ot R00.2 PALPITATIONS 03/30/2016 JUAN F MADDEN FACC, ALI FACP CCDS Ot R06.00 DYSPNEA, UNSPECIFIED 03/30/2016 JUAN F MADDEN FACC, ALI FACP CCDS Ot R55 SYNCOPE AND COLLAPSE 03/30/2016 CHARLOTTE LIU DO Ot M51.34 OTHER INTERVERTEBRAL DISC DEGENERATION , 03/30/2016 CHARLOTTE LIU DO Ot R06.00 DYSPNEA, UNSPECIFIED 03/30/2016 JUAN F MADDEN FACC, ALI FACP CCDS Ot A69.20 LYME DISEASE, UNSPECIFIED 03/30/2016 JUAN F MADDEN FACC, ALI FACP CCDS Ot R00.2 PALPITATIONS 03/30/2016 JUAN F MADDEN FACC, ALI FACP CCDS Ot R06.00 DYSPNEA, UNSPECIFIED 03/30/2016 JUAN F MADDEN FACC, ALI FACP CCDS Ot R55 SYNCOPE AND COLLAPSE 03/31/2016 KAI LIU E 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 Ot M25.561 PAIN IN RIGHT KNEE 04/05/2016 KAI LIU E 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 Ot M25.561 PAIN IN RIGHT KNEE 04/14/2016 KAI LIU E 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 Ot M25.561 PAIN IN RIGHT KNEE 08/22/2016 Ot 785.1 PALPITATIONS 08/22/2016 Ot 611.72 LUMP OR MASS IN BREAST 08/22/2016 Ot 786.50 CHEST PAIN NOS 08/22/2016 Ot 611.72 LUMP OR MASS IN BREAST 08/22/2016 Ot 625.9 FEM GENITAL SYMPTOMS NOS 08/22/2016 Ot 537.9 GASTRODUODENAL DIS NOS 08/22/2016 Ot 793.6 NOSP (ABN) FINDINGS ON RADIOLOGICAL OT 08/22/2016 Ot 255.42 MINERALOCORTICOID DEFICIENCY 08/22/2016 Ot 790.99 BLOOD EXAM - OTH NONSPECIFIC FINDINGS 08/22/2016 Ot 255.10 HYPERALDOSTERONISM, UNSPECIFIED 08/22/2016 Ot 401.9 HYPERTENSION NOS 08/22/2016 Ot 458.9 HYPOTENSION NOS 08/22/2016 Ot 782.3 EDEMA 08/22/2016 Ot 346.90 MIGRAINE UNSPECIFIED W/O INTRACT MGRN W/ 08/22/2016 Ot 368.9 VISUAL DISTURBANCE NOS 08/22/2016 Ot 781.2 ABNORMALITY OF GAIT 08/22/2016 Ot 785.6 ENLARGEMENT LYMPH NODES 08/22/2016 Ot 785.9 CARDIOVAS SYS SYMP NEC 08/22/2016 Ot 473.9 CHRONIC SINUSITIS NOS 08/22/2016 Ot 785.6 ENLARGEMENT LYMPH NODES 08/22/2016 CHARLOTTE LIU DO Ot 719.43 JOINT PAIN-FOREARM 08/22/2016 CHARLOTTE LIU DO Ot 719.45 JOINT PAIN-PELVIS 08/22/2016 CHARLOTTE LIU DO Ot 724.2 LUMBAGO 08/22/2016 KAI LIU E 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 Ot 379.91 PAIN IN OR AROUND EYE 08/22/2016 Ot 088.81 LYME DISEASE 08/22/2016 IRVING ZALDIVAR MD Ot 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 08/22/2016 IRVING ZALDIVAR MD Ot 473.9 CHRONIC SINUSITIS NOS 08/22/2016 IRVING ZALDIVAR MD Ot 478.0 HYPERTRPH NASAL TURBINAT 08/22/2016 IRVING ZALDIVAR MD Ot 780.79 OTH MALAISE FATIGUE 08/22/2016 IRVING ZALDIVAR MD Ot V12.09 PERSONAL HISTORY OTH SPEC INFECT ELIZABETH 08/22/2016 IRVING ZALDIVAR MD Ot V72.63 PRE-PROCEDURAL LABORATORY EXAMINATION 08/22/2016 IRVING ZALDIVAR MD Ot V72.81 [id number] CARDIOVASCULAR 08/22/2016 IRVING ZALDIVAR MD Ot V74.8 SCREEN-BACTERIAL DIS NEC 08/22/2016 IRVING ZALDIVAR MD Ot 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 08/22/2016 IRVING ZALDIVAR MD Ot 473.2 CHR ETHMOIDAL SINUSITIS 08/22/2016 IRVING ZALDIVAR MD Ot 474.00 CHRONIC TONSILLITIS 08/22/2016 IRVING ZALDIVAR MD Ot 478.0 HYPERTRPH NASAL TURBINAT 08/22/2016 KAI LIU E 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 Ot 723.0 CERVICAL SPINAL STENOSIS 08/22/2016 CHARLOTTE LIU DO Ot 780.93 MEMORY LOSS 08/22/2016 CHARLOTTE LIU DO Ot 782.0 SKIN SENSATION DISTURB 08/22/2016 CHARLOTTE LIU DO Ot 611.71 MASTODYNIA 08/22/2016 KAI LIU E 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 Ot 723.4 BRACHIAL NEURITIS NOS 08/22/2016 KAI LIU E 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 Ot 787.20 DYSPHAGIA, UNSPECIFIED 08/22/2016 JUAN F AYALA, ALI FACP CCDS Ot A69.20 LYME DISEASE, UNSPECIFIED 08/22/2016 JUAN F AYALA, ALI FACP CCDS Ot R00.2 PALPITATIONS 08/22/2016 JUAN F AYALA, MARCI FACP CCDS Ot R06.00 DYSPNEA, UNSPECIFIED 08/22/2016 JUAN F MADDEN FAC, ALI FACP CCDS Ot R55 SYNCOPE AND COLLAPSE 08/22/2016 JUAN F AYALA, ALI FACP CCDS Ot A69.20 LYME DISEASE, UNSPECIFIED 08/22/2016 JUAN F AYALA, ALI FACP CCDS Ot R00.2 PALPITATIONS 08/22/2016 JUAN F MADDEN FACC, ALI FACP CCDS Ot R06.00 DYSPNEA, UNSPECIFIED 08/22/2016 JUAN F AYALA, ALI FACP CCDS Ot R55 SYNCOPE AND COLLAPSE 08/22/2016 CHARLOTTE LIU DO Ot M51.34 OTHER INTERVERTEBRAL DISC DEGENERATION , 08/22/2016 CHARLOTTE LIU DO Ot R06.00 DYSPNEA, UNSPECIFIED 08/22/2016 JUAN F AYALAC, [facility] FACP CCDS Ot A69.20 LYME DISEASE, UNSPECIFIED 08/22/2016 JUAN F MADDEN [facility] CCDS Ot R00.2 PALPITATIONS 08/22/2016 JUAN F MADDEN [facility] [facility] CCD[facility] Ot R06.00 DYSPNEA, UNSPECIFIED 08/22/2016 JUAN F MADDEN [facility] FACP CCDS Ot R55 SYNCOPE AND COLLAPSE 08/22/2016 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 E 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 Ot M25.561 PAIN IN RIGHT KNEE 08/23/2016 BHUPENDRA DESAI MD Ot M54.2 CERVICALGIA 08/23/2016 BHUPENDRA DESAI MD Ot Z12.31 ENCNTR SCREEN MAMMOGRAM FOR MALIGNANT NE 08/23/2016 BHUPENDRA DESAI MD Ot Z98.1 ARTHRODESIS STATUS 03/07/2017 Ot 346.90 MIGRAINE UNSPECIFIED W/O INTRACT MGRN W/ 03/07/2017 Ot 368.9 VISUAL DISTURBANCE NOS 03/07/2017 Ot 781.2 ABNORMALITY OF GAIT 03/07/2017 Ot 785.6 ENLARGEMENT LYMPH NODES 03/07/2017 Ot 785.9 CARDIOVAS SYS SYMP NEC 03/07/2017 Ot 473.9 CHRONIC SINUSITIS NOS 03/07/2017 Ot 785.6 ENLARGEMENT LYMPH NODES 03/07/2017 CHARLOTTE LIU DO Ot 719.43 JOINT PAIN-FOREARM 03/07/2017 CHARLOTTE LIU DO Ot 719.45 JOINT PAIN-PELVIS 03/07/2017 CHARLOTTE LIU DO Ot 724.2 LUMBAGO 03/07/2017 KAI LIU E 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 Ot 379.91 PAIN IN OR AROUND EYE 03/07/2017 Ot 088.81 LYME DISEASE 03/07/2017 IRVING ZALDIVAR MD Ot 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 03/07/2017 IRVING ZALDIVAR MD Ot 473.9 CHRONIC SINUSITIS NOS 03/07/2017 IRVING ZALDIVAR MD Ot 478.0 HYPERTRPH NASAL TURBINAT 03/07/2017 IRVING ZALDIVAR MD Ot 780.79 OTH MALAISE FATIGUE 03/07/2017 IRVING ZALDIVAR MD Ot V12.09 PERSONAL HISTORY OTH SPEC INFECT ELIZABETH 03/07/2017 IRVING ZALDIVAR MD Ot V72.63 PRE-PROCEDURAL LABORATORY EXAMINATION 03/07/2017 IRVING ZALDIVAR MD Ot V72.81 [id number] CARDIOVASCULAR 03/07/2017 IRVING ZALDIVAR MD Ot V74.8 SCREEN-BACTERIAL DIS NEC 03/07/2017 IRVING ZALDIVAR MD Ot 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 03/07/2017 IRVING ZALDIVAR MD Ot 473.2 CHR ETHMOIDAL SINUSITIS 03/07/2017 IRVING ZALDIVAR MD Ot 474.00 CHRONIC TONSILLITIS 03/07/2017 IRVING ZALDIVAR MD Ot 478.0 HYPERTRPH NASAL TURBINAT 03/07/2017 KAI LIU E 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 Ot 723.0 CERVICAL SPINAL STENOSIS 03/07/2017 CHARLOTTE LIU DO Ot 780.93 MEMORY LOSS 03/07/2017 CHARLOTTE LIU DO Ot 782.0 SKIN SENSATION DISTURB 03/07/2017 CHARLOTTE LIU DO Ot 611.71 MASTODYNIA 03/07/2017 KAI LIU E 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 Ot 723.4 BRACHIAL NEURITIS NOS 03/07/2017 KAI LIU E 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 Ot 787.20 DYSPHAGIA, UNSPECIFIED 03/07/2017 JUAN F AYALA, ALI FACP CCDS Ot A69.20 LYME DISEASE, UNSPECIFIED 03/07/2017 JUAN F MADDEN FAC, ALI FACP CCDS Ot R00.2 PALPITATIONS 03/07/2017 JUAN F MADDEN [facility], ALI FACP CCDS Ot R06.00 DYSPNEA, UNSPECIFIED 03/07/2017 JUAN F MADDEN FAC, ALI FACP CCDS Ot R55 SYNCOPE AND COLLAPSE 03/07/2017 JUAN F MADDEN FAC, ALI FACP CCDS Ot A69.20 LYME DISEASE, UNSPECIFIED 03/07/2017 JUAN F MADDEN [facility], ALI FACP CCDS Ot R00.2 PALPITATIONS 03/07/2017 JUAN F MADDEN FAC, ALI FACP CCDS Ot R06.00 DYSPNEA, UNSPECIFIED 03/07/2017 JUAN F MADDEN FAC, ALI FACP CCDS Ot R55 SYNCOPE AND COLLAPSE 03/07/2017 CHARLOTTE LIU DO Ot M51.34 OTHER INTERVERTEBRAL DISC DEGENERATION , 03/07/2017 CHARLOTTE LIU DO Ot R06.00 DYSPNEA, UNSPECIFIED 03/07/2017 JUAN F AYALA, ALI FACP CCDS Ot A69.20 LYME DISEASE, UNSPECIFIED 03/07/2017 JUAN F MADDEN FACC, MARCI FACP CCDS Ot R00.2 PALPITATIONS 03/07/2017 JUAN F MADDEN FACC, MARCI FACP CCDS Ot R06.00 DYSPNEA, UNSPECIFIED 03/07/2017 JUAN F MADDEN FACC, MARCI FACP CCDS Ot R55 SYNCOPE AND COLLAPSE 03/07/2017 KAI LIU E 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 Ot M25.561 PAIN IN RIGHT KNEE 03/07/2017 BHUPENDRA DESAI MD Ot M54.2 CERVICALGIA 03/07/2017 BHUPENDRA DESAI MD Ot Z12.31 ENCNTR SCREEN MAMMOGRAM FOR MALIGNANT NE 03/07/2017 BHUPENDRA DESAI MD Ot Z98.1 ARTHRODESIS STATUS 03/08/2017 BHUPENDRA DESAI MD Ot J84.10 PULMONARY FIBROSIS, UNSPECIFIED Procedures Results Encounters ACCT No. Visit Date/Time Discharge Status Pt. Type Provider Facility Loc./Unit Complaint [id number] 07/24/2015 06:58:00 2015 00:01:00 DIS Outpatient MARCI ROGEL MD, FACC FACP CCDS Via [facility] PALP,SYNCOPE [id number] 07/16/2015 06:48:00 2014 16:40:00 DIS Outpatient MARCI ROGEL MD, FACC FACAlvin CCDS Via [facility] CEDEÑO,CP,PALPITATIONS [id number] 07/10/2015 16:17:00 2014 23:59:59 CLS Outpatient CHARLOTTE LIU DO Via [facility] RAD DDD,DYSPNEA [id number] 07/01/2015 14:25:00 2014 23:59:59 CLS Outpatient CHARLOTTE LIU DO Via [facility] CHEST PAIN [id number] 06/30/2015 07:59:00 2014 23:59:59 CLS Outpatient MARCI ROGEL MD, FACC FACP CCDS Via [facility] CARD LYME DISEASE, PALPITATIONS , CEDEÑO, SYNCOPE [id number] 06/26/2015 07:42:00 2014 23:59:59 CLS Outpatient MARCI ROGEL MD, FACC FACP CCDS [facility] CARD LYME DISEASE, PALPITATIONS , CEDEÑO, SYNCOPE [id number] 06/02/2015 08:55:00 2014 23:59:59 CLS Outpatient KAI LIU Via [facility] RAD CERVICAL PAIN,RADICULOPATHY , DIFFICULTY SWALLOWING [id number] 04/30/2015 12:45:00 2014 23:59:59 CLS Outpatient CHARLOTTE LIU DO Via [facility] RAD SCREENING [id number] 03/16/2015 21:29:00 2014 02:06:00 DIS Emergency CHARLOTTE RODGERS DO Via [facility] ER HEADACHE [id number] 10/13/2014 16:36:00 2014 23:59:59 CLS Outpatient KAI BENNETT APRN Via [facility] QUICK [id number] 10/11/2014 12:59:00 2014 15:35:00 DIS Inpatient CHARLOTTE LIU DO Via [facility] 4TH LEFT SIDED FACIAL DROOP, TREMOR, HEADACHE [id number] 09/16/2014 13:34:00 2013 23:59:59 CLS Outpatient CHARLOTTE LIU DO Via [facility] RAD MEMORY LOSS, PARASTHESIA [id number] 04/10/2014 08:39:00 2013 10:08:00 DIS Emergency YAMILETH MADDEN, PREM Neely Via [facility] ER HEADACHE/LIGHTHEADED [id number] 09/27/2013 12:28:00 2013 23:59:59 CLS Outpatient KAI LIU Via [facility] RAD NECK PAIN,RT ARM PAIN [id number] 09/19/2013 19:03:00 2013 22:13:00 DIS Emergency GERMAINE MADDEN, BUSTER Cooney Via [facility] ER R ARM TINGLY [id number] 08/30/2013 06:25:00 2012 23:59:59 CLS Outpatient KAYLEY MADDEN, IRVING Esquivel [facility] SDC CHRONIC SINUSITIS;DEVIATED SEPTUM; SEE NOTES [id number] 08/26/2013 07:22:00 2012 23:59:59 CLS Outpatient KAYLEY MADDEN, IRVING Esquivel [facility] PREOP CHRONIC SINUSITIS;DEVIEATED SEPTUM; SEE NOTES [id number] 07/09/2013 21:34:00 2012 22:16:00 DIS Emergency SUSHIL SANCHEZ APRN Via [facility] ER POSS BROKEN TOE ON L FOOT [id number] 06/10/2013 16:46:00 2012 20:21:00 DIS Emergency GERMAINE MADDEN, BUSTER Cooney Via [facility] ER CONGESTION, CHEST PAIN, AND LYMES DISEASE [id number] 05/13/2013 10:29:00 2012 00:01:00 DIS Outpatient KAI LIU Via [facility] SURG RCR BORRELIOSIS [id number] 03/07/2013 13:12:00 2012 23:59:59 CLS Outpatient KAI LIU Via [facility] RAD RT EYE PAIN [id number] 01/17/2013 15:59:00 2012 23:59:59 CLS Outpatient CHARLOTTE LIU DO Via [facility] RAD LUMBALGO L HIP PAIN, L WRIST PAIN [id number] 03/15/2017 12:30:00 PEN Preadmit SALINA BARKLEY MD [facility] ENDO RECTAL BLEEDING/REFLUX/DYSPHAGIA [id number] 03/13/2017 11:15:00 PEN Preadmit SALINA BARKLEY MD Via [facility] RAD THYROID MASS, NECK MASS [id number] 03/07/2017 11:47:00 ACT Outpatient BHUPENDRA DESAI MD Via [facility] RAD HX LUNG NODULE [id number] 02/15/2017 10:30:00 PEN Preadmit BHUPENDRA DESAI MD [facility] RAD SCREENING [id number] 08/22/2016 11:28:00 ACT Outpatient BHUPENDRA DESAI MD [facility] RAD CERVICAL NECK PAIN, HX OF CERVICAL FUSION [id number] 03/30/2016 15:01:00 ACT Outpatient KAI LIU Via [facility] RAD R KNEE PAIN,M25.561 [id number] 09/29/2015 11:30:00 PEN Preadmit JUAN F MADDEN FACC , MARCI MANE CCDS Via [facility] CARD PALP,SYNCOPE [id number] 08/24/2015 13:56:00 ACT Outpatient CHARLOTTE LIU DO Via [facility] RT DDD,DYSPNEA [id number] 11/16/2014 16:40:00 Document Registration [id number] 10/11/2014 19:06:00 Document Registration [id number] 10/11/2014 19:06:00 Document Registration [id number] 10/11/2014 19:06:00 Document Registration [id number] 10/11/2014 19:06:00 Document Registration [id number] 10/11/2014 09:42:00 Document Registration [id number] 10/11/2014 09:41:00 Document Registration [id number] 05/17/2013 00:00:00 Document Registration [id number] 09/13/2012 05:44:00 Document Registration [id number] 07/13/2012 08:05:00 Document Registration [id number] 06/18/2012 12:51:00 Document Registration [id number] 03/02/2012 09:11:00 Document Registration [id number] 09/06/2011 00:00:00 Document Registration [id number] 07/20/2011 07:46:00 Document Registration [id number] 07/13/2011 08:10:00 Document Registration [id number] 07/11/2011 09:54:00 Document Registration [id number] 06/09/2011 08:01:00 Document Registration [id number] 06/07/2011 16:36:00 Document Registration [id number] 04/06/2011 08:00:00 Document Registration [id number] 03/30/2011 12:45:00 Document Registration [id number] 03/03/2011 10:16:00 Document Registration [id number] 03/02/2011 15:49:00 Document Registration [id number] 04/25/2010 09:33:00 Document Registration [id number] 04/23/2010 18:27:00 Document Registration [id number] 02/22/2010 05:45:00 Document Registration [id number] 02/16/2010 09:33:00 Document Registration [id number] 02/01/2010 13:15:00 Document Registration [id number] 01/29/2010 12:48:00 Document Registration [id number] 11/09/2009 12:27:00 Document Registration [id number] 11/04/2009 08:28:00 Document Registration [id number] 05/20/2009 12:55:00 Document Registration
[2017-03-15] MEDS ORDERED: FLUMAZENIL (ROMAZICON) 0.1 MG/ML 5 ML VIAL INJ PRN (14:30)
[2017-03-15] MEDS ORDERED: NS IV 500 ML 500 ML IV SCH (14:30)
[2017-03-15] MEDS ORDERED: HURRICAINE EXT TUBE (BENZOCAINE) XX PRN (14:30)
[2017-03-15] MEDS ORDERED: NALOXONE 0.4 MG/ML 1 ML (NARCAN) VIAL IVP PRN (14:30)
[2017-03-15] MEDS ORDERED: NS IV 500 ML 500 ML ONE (14:36)
--- NOTE | 2017-03-15 14:52 | Conscious Sedation/ASA ---
Conscious Sedation Pre-Proced Time Reviewed: 14:45 ASA Class: 2 Airway Mallampati Classification: ([place] appropriate class) I. II. III, IV Lungs Heart ASA score ASA 1: a normal healthy patient ASA 2: a patient with a mild systemic disease (mid diabetes, controlled hypertension, obesity ASA 3: a patient with a severe systemic disease that limits activity (angina , COPD, prior Myocardial infarction) ASA 4: a patient with an incapacitating disease that is a constant threat to life (CHF, renal failure) ASA 5: a moribund patient not expected to survive 24 hrs. (ruptured aneurysm) ASA 6: a declared brain patient whose organs are being harvested. For emergent operations, add the letter E after the classification Grade 2 Sedation Plan: Analgesia, Amnesia, Plan communicated to team members, Discussed options with patient/fam, Discussed risks with patient/fam Note The patient is an appropriate candidate to undergo the planned procedure, sedation, and anesthesia. The patient immediately re-assessed prior to indication. SALINA BARKLEY MD Mar 15, 2017 2:52 pm
--- NOTE | 2017-03-15 14:53 | Progress Note-Pre Operative ---
Pre-Operative Progress Note H&P Reviewed The H&P was reviewed, patient examined and no changes noted. Date Seen by Provider: Mar 15, 2017 Time Seen by Provider: 14:45 Date H&P Reviewed: Mar 15, 2017 Time H&P Reviewed: 14:45 Pre-Operative Diagnosis: dysphagia, rectal bleed SALINA BARKLEY MD Mar 15, 2017 2:53 pm
[2017-03-15 14:55] VITALS: BP 131/87
[2017-03-15] MEDS ORDERED: morphine INJ 10 MG/ML 1ML (SYR OR VIAL) IV PRN (15:00)
[2017-03-15] MEDS ORDERED: ACETAMINOPHEN 325 MG TABLET/CAPLET (TYLENOL) PO PRN (15:00)
[2017-03-15] MEDS ORDERED: HYDROcodone/APAP 5 MG/325 MG (LORTAB) TAB PO PRN (15:00)
[2017-03-15] MEDS ORDERED: ONDANSETRON 4 MG/2 ML (SDV) Z0FRAN IV PRN (15:00)
[2017-03-15] MEDS ORDERED: fentaNYL INJECTION 100 MCG/2 ML AMP ONE ×3 (15:35→16:24)
[2017-03-15] MEDS ORDERED: LIDOCAINE JELLY 2% (XYLOCAINE) 5 ML TUBE ONE (15:35)
[2017-03-15] MEDS ORDERED: HURRICAINE EXT TUBE (BENZOCAINE) ONE (15:36)
[2017-03-15] MEDS ORDERED: MIDAZOLAM 2 MG/2 ML (VERSED) VIAL ONE ×6 (15:36→16:19)
[2017-03-15] MEDS: fentaNYL INJECTION 100 MCG/2 ML AMP IVP PRN ×6 (15:50→16:30)
[2017-03-15] MEDS: MIDAZOLAM 2 MG/2 ML (VERSED) VIAL IVP PRN ×6 (15:57→16:23)
[2017-03-15] MEDS: LIDOCAINE JELLY 2% (XYLOCAINE) 5 ML TUBE MM PRN ×2 (16:10→16:24)
--- NOTE | 2017-03-15 16:56 | Progress Note-Post Operative ---
Post-Operative Progess Note Surgeon (s)/Dieing Out Machine Operator (s) Surgeon SALINA BARKLEY MD Dieing Out Machine Operator: none Pre-Operative Diagnosis dysphagia, rectal bleed Post-Operative Diagnosis reflux esophagitis(class B), no stricture, small HH(1.5cm), moderate gastritis. chronic stage 2 ext and int hemorrhoids, mild sigmoid diverticulosis. Procedure & Operative Findings Date of Procedure 03/15/17 Procedure Performed/Findings EGD with bx. Colonoscopy. Anesthesia Type CS Estimated Blood Loss Estimated blood loss (mL): minimal Specimens/Packing Specimens Removed GE jxn, antrum SALINA BARKLEY MD Mar 15, 2017 4:56 pm
[2017-03-15] MEDS ORDERED: PANT40TA2 PO (16:57)
--- NOTE | 2017-03-15 16:59 | Discharge Inst-Surgical ---
D/C Lap Instructions-KIDO New, Converted, or Re-Newed RX: RX on Chart Follow Up PRN Activity as tolerated High Fiber Diet 25g or more per day Avoid Alcohol, Caffeine, Spicy [place] and Acid foods. Drink 64 fluid oz or more of fluids per day. Symptoms to Report: Fever over 101 degree F, Nausea/Vomiting If any problems/questions: Contact your physician or go to Emergency Room SALINA BARKLEY MD Mar 15, 2017 4:59 pm
[2017-03-15 17:10] VITALS: BP 127/84
[2017-03-15 17:41] VITALS: BP 117/81
[2017-03-15 17:50] VITALS: BP 117/81
== END 2017-03-15 17:50 | disposition home or self-care (01) ==
LOC: ENDO 14:04
PROVIDERS: ATTEND Surgery
DX: K21.0 Gastro-esophageal reflux disease with esophagitis (principal); K64.1 Second degree hemorrhoids; K57.30 Diverticulosis of large intestine without perforation or abscess without bleeding; K44.9 Diaphragmatic hernia without obstruction or gangrene; K29.60 Other gastritis without bleeding; I10 Essential (primary) hypertension; E78.5 Hyperlipidemia, unspecified; Z79.899 Other long term (current) drug therapy; Z80.0 Family history of malignant neoplasm of digestive organs

== ENCOUNTER 2017-06-28 21:01 | Emergency (ER) | payer BC ==
[~2017-06-28] VITALS: Ht 170.2 cm; Wt 77.1 kg
--- OUTSIDE RECORDS SUMMARY | 2017-06-28 21:07 | XMS REPORT | Clinical Summary ---
Author Author [facility] Organization 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 If you do not see the information that you expected, contact Release of Information in the Health Information Management department at [phone] for further assistance in locating additional records.[facility] Allergies Active Allergy Reactions Severity Noted Date Comments Adhesive Tape (Rosins) RASH Medium 02/06/2014 Penicillins RASH Medium 03/01/2013 Pt has tolerated Rocephin in the past Hydroxychloroquine HIVES Medium 08/28/2015 Hives all over entire body Mold SEE COMMENTS Low congestion and headache Current Medications Prescription Sig. Disp. Refills Start [...] Take 1 mg by mouth daily. Active tabletIndications: Indications: patient patient stated takes .5 stated takes .5 mg every mg every other day other day MULTIVITAMINS WITH Take 1 Tab [...] out of Doxycycline; sent to pharmacy in [place]. Rec 100mg BID for now. Eye globe [...] Plan: Continue off DWCL Add pataday OU [employer] shell Resolved Problems Problem Noted Date Resolved Date Cervical stenosis of spine 02/25/2014 07/15/2015 Family History Medical History Relation Name Comments Hypertension Father Stroke Father Hypertension Maternal Grandfather Dementia Maternal Grandmother Hypertension Maternal Grandmother Cancer Mother Hypertension Mother Migraines Mother Thyroid Disease Mother Hypertension Paternal Grandfather Hypertension Paternal Grandmother Relation Name Status Comments Father Maternal Grandfather Maternal Grandmother Mother Paternal Grandfather Paternal Grandmother Social History Tobacco Use Types Packs/Day Years Used Date Never Smoker Smokeless Tobacco: Never Used Alcohol Use Drinks/Week oz/Week Comments Yes 0 Standard 0.0 Occassional drinks or equivalent Sex Assigned at Date Recorded Not on file Last Filed Vital Signs Vital Sign Reading Time Taken Blood Pressure 130/82 03/24/2016 10:26 AM CDT Pulse 88 03/24/2016 10:26 AM CDT Temperature 36.8 C (98.3 F) 03/24/2016 10:26 AM CDT Respiratory Rate 20 01/14/2016 7:51 AM CDT Oxygen Saturation 100% 01/14/2016 7:51 AM CDT Inhaled Oxygen - - Concentration Weight 70.3 kg (155 lb) 05/10/2016 8:08 AM CDT Height 170.2 cm (5' 7") 05/10/2016 8:08 AM CDT Body Mass Index 24.28 05/10/2016 8:08 AM CDT Plan of Treatment Health Maintenance Due Date Last Done Comments PHYSICAL (COMPREHENSIVE) 1981 EXAM PERTUSSIS VACCINE 1985 TETANUS VACCINE 1991 CERVICAL CANCER SCREENING 01/07/2004 BREAST CANCER SCREENING 2014 INFLUENZA VACCINE 06/18/2017 Results Not on filefrom Last 3 Months
--- OUTSIDE RECORDS SUMMARY | 2017-06-28 21:12 | XMS REPORT | Continuity of Care Document ---
Author Author [facility] Organization [facility] Address Unknown Phone Unavailable Allergies Active Description Code Type Severity Reaction Onset Reported/Identified Relationship to Patient Clinical Status Yes hydroxychloroquine [id number] Drug Allergy Unknown N/A 03/15/2017 Yes Penicillins [id number] Drug Allergy Unknown N/A 03/15/2017 Medications Problems Date Dx Coded Attending Type [...] KAI LIU Ot 088.81 LYME DISEASE 06/10/2013 BUSTER HERRON MD Ot 465.9 ACUTE URI NOS 06/10/2013 BUSTER HERRON MD Ot 599.0 URIN TRACT INFECTION NOS 06/10/2013 BUSTER HERRON MD Ot 786.50 CHEST PAIN NOS 07/09/2013 SUSHIL SANCHEZ AGILE DEVELOPER Ot 825.25 FX METATARSAL-CLOSED 07/09/2013 SUSHIL SANCHEZ AGILE DEVELOPER Ot 959.7 LOWER LEG INJURY NOS 07/09/2013 SUSHIL SANCHEZ AGILE DEVELOPER Ot E000.8 OTHER EXTERNAL CAUSE STATUS 07/09/2013 SUSHIL SANCHEZ AGILE DEVELOPER Ot E849.0 ACCIDENT IN HOME 07/09/2013 SUSHIL SANCHEZ AGILE DEVELOPER Ot E885.9 FALL FROM SLIPPING, TRIPPING, OR [...] LIU DO Ot 724.2 10/11/2014 KAI LIU [employer] GOODS 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 Ot 379.91 10/11/2014 Ot 088.81 10/11/2014 KAYLEY [...] MADDEN, IRVING P Ot 478.0 10/11/2014 KAI LIU Ot 723.0 10/11/2014 CHARLOTTE LIU DO Ot [...] Torrey Ot 424.0 MITRAL VALVE DISORDER 10/12/2014 ALEXA KNUTSON [place] Torrey Ot 781.0 ABN INVOLUN MOVEMENT NEC 10/12/2014 [...] Esquivel Ot V12.09 01/08/2015 KAYLEY MADDEN, IRVING P Ot V72.63 01/08/2015 KAYLEY MADDEN, IRVING P Ot V72.81 01/08/2015 KAYLEY MADDEN, IRVING P Ot V74.8 01/08/2015 KAYLEY MADDEN, IRVING P Ot 470 01/08/2015 KAYLEY MADDEN, IRVING P Ot 473.2 01/08/2015 KAYLEY MADDEN, IRVING P Ot 474.00 01/08/2015 KAYLEY MADDEN, IRVING P Ot 478.0 01/08/2015 KAI LIU Ot 723.0 [...] Esquivel Ot V72.63 03/16/2015 KAYLEY MADDEN, IRVING Esquivel Ot V72.81 03/16/2015 KAYLEY MADDEN, IRVING P Ot V74.8 03/16/2015 KAYLEY MADDEN, IRVING Esquivel Ot 470 03/16/2015 KAYLEY MADDEN, IRVING Esquivel Ot 473.2 03/16/2015 KAYLEY MADDEN, IRVING [...] LIU DO Ot 724.2 05/12/2015 KAI LIU [employer] GOODS 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 Ot 379.91 05/12/2015 Ot 088.81 05/12/2015 KAYLEY [...] MADDEN, IRVING P Ot 478.0 05/12/2015 KAI LIUP Ot 723.0 05/12/2015 CHARLOTTE LIU DO Ot 780.93 05/12/2015 [place]TE LIU DO Ot 782.0 05/12/2015 [place] LIU DO Ot 611.71 05/15/2015 [place] LIU DO Ot 611.71 06/17/2015 KAI LIU [employer] 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 Ot 723.4 06/17/2015 KAI LIU [employer] GOODS 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 Ot 787.20 07/01/2015 Ot 621.30 07/01/2015 Ot [...] LIU DO Ot 724.2 07/01/2015 KAI LIU [employer] GOODS 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 Ot 379.91 07/01/2015 Ot 088.81 07/01/2015 KAYLEY [...] IRVING P Ot 478.0 07/01/2015 KAI LIU [employer] GOODS 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 Ot 723.0 07/01/2015 CHARLOTTE LIU DO Ot 780.93 07/01/2015 CHARLOTTE LIU DO Ot 782.0 07/01/2015 CHARLOTTE LIU DO Ot 611.71 07/01/2015 KAI LIU [employer] 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 Ot 723.4 07/01/2015 KAI LIU [employer] GOODS 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 Ot 787.20 07/01/2015 JUAN F MADDEN FACC, [...] FACP CCDS Ot R55 07/16/2015 JUAN F MADDEN FACC, ALI FACP CCDS Ot Q24.5 MALFORMATION OF CORONARY VESSELS 07/16/2015 JUAN F MADDEN FACC, ALI FACP CCDS Ot R00.2 PALPITATIONS 07/16/2015 JUAN F MADDEN FACC, ALI FACP CCDS Ot R06.02 SHORTNESS OF BREATH 07/16/2015 JUAN F MADDEN FACC, ALI FACP CCDS Ot R07.89 OTHER CHEST PAIN 07/16/2015 JUAN F MADDEN FACC, ALI FACP CCDS Ot Z79.899 OTHER PENITENTIARY (CURRENT) DRUG THERAPY 07/21/2015 CHARLOTTE LIU DO Ot M51.34 08/05/2015 JUAN F MADDEN FACC, ALI FACP CCDS Ot A69.20 08/05/2015 JUAN F MADDEN FACC, ALI FACP CCDS Ot R00.2 08/05/2015 JUAN F MADDEN FACC, ALI FACP CCDS Ot R06.00 08/05/2015 JUAN F MADDEN FACC, ALI FACP CCDS Ot R55 09/09/2015 CHARLOTTE LIU DO Ot R06.00 09/28/2015 JUAN F MADDEN FACC, ALI FACP CCDS Ot A69.20 LYME DISEASE, UNSPECIFIED 09/28/2015 JUAN F MADDEN FACC, ALI FACP CCDS Ot R00.2 PALPITATIONS 09/28/2015 JUAN F MADDEN FACC, ALI FACP CCDS Ot R06.00 DYSPNEA, UNSPECIFIED 09/28/2015 JUAN F MADDEN FACC, ALI FACP CCDS [...] EXAMINATION 03/30/2016 IRVING ZALDIVAR MD Ot V72.81 [id number] CARDIOVASCULAR 03/30/2016 IRVING ZALDIVAR MD Ot V74.8 SCREEN-BACTERIAL DIS NEC 03/30/2016 IRVING ZALDIVAR MD Ot 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 03/30/2016 IRVING ZALDIVAR MD Ot 473.2 CHR ETHMOIDAL SINUSITIS 03/30/2016 IRVING ZALDIVAR MD Ot 474.00 CHRONIC TONSILLITIS 03/30/2016 IRVING ZALDIVAR MD Ot 478.0 HYPERTRPH NASAL TURBINAT 03/30/2016 LIU, KAI L [employer] GOODS 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 Ot 723.0 CERVICAL SPINAL STENOSIS 03/30/2016 CHARLOTTE LIU DO Ot 780.93 MEMORY LOSS 03/30/2016 [place] LIU DO Ot 782.0 SKIN SENSATION DISTURB 03/30/2016 CHARLOTTE LIU DO Ot 611.71 MASTODYNIA 03/30/2016 KAI LIU [employer] 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 Ot 723.4 BRACHIAL NEURITIS NOS 03/30/2016 KAI LIU [employer] GOODS 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 Ot 787.20 DYSPHAGIA, UNSPECIFIED 03/30/2016 JUAN F AYALAC, ALI FACP CCDS Ot A69.20 LYME DISEASE, UNSPECIFIED 03/30/2016 JUAN F MADDEN FACC, ALI FACP CCDS Ot R00.2 PALPITATIONS 03/30/2016 JUAN F AYALAC, ALI FACP CCDS Ot R06.00 DYSPNEA, UNSPECIFIED 03/30/2016 JUAN F AYALAC, ALI FACP CCDS Ot R55 SYNCOPE AND [...] R55 SYNCOPE AND COLLAPSE 03/31/2016 KAI LIU [employer] GOODS 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 Ot M25.561 PAIN IN RIGHT KNEE 04/05/2016 KAI LIU [employer] GOODS 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 Ot M25.561 PAIN IN RIGHT KNEE 04/14/2016 KAI LIU [employer] GOODS 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 Ot M25.561 PAIN IN RIGHT KNEE 08/22/2016 [...] DO Ot 724.2 LUMBAGO 08/22/2016 KAI LIU [employer] GOODS 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 Ot 379.91 PAIN IN OR AROUND EYE [...] EXAMINATION 08/22/2016 IRVING ZALDIVAR MD Ot V72.81 [id number] CARDIOVASCULAR 08/22/2016 IRVING ZALDIVAR MD Ot V74.8 SCREEN-BACTERIAL DIS NEC 08/22/2016 IRVING ZALDIVAR MD Ot 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 08/22/2016 IRVING ZALDIVAR MD Ot 473.2 CHR ETHMOIDAL SINUSITIS 08/22/2016 IRVING ZALDIVAR MD Ot 474.00 CHRONIC TONSILLITIS 08/22/2016 IRVING ZALDIVAR MD Ot 478.0 HYPERTRPH NASAL TURBINAT 08/22/2016 KAI LIU [employer] 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 Ot 723.0 CERVICAL SPINAL STENOSIS 08/22/2016 CHARLOTTE LIU DO Ot 780.93 MEMORY LOSS 08/22/2016 [place]LOTTE LIU DO Ot 782.0 SKIN SENSATION DISTURB 08/22/2016 CHARLOTTE LIU DO Ot 611.71 MASTODYNIA 08/22/2016 KAI LIU [employer] GOODS 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 Ot 723.4 BRACHIAL NEURITIS NOS 08/22/2016 KAI LIU OPT[employer] GOODS 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 Ot 787.20 DYSPHAGIA, UNSPECIFIED 08/22/2016 JUAN F AYALA, MARCI FACP CCDS Ot A69.20 LYME DISEASE, UNSPECIFIED [...] R06.00 DYSPNEA, UNSPECIFIED 08/22/2016 JUAN F MADDEN FACC, ALI FACP CCDS Ot R55 SYNCOPE AND COLLAPSE 08/22/2016 [place] LIU DO Ot M51.34 OTHER INTERVERTEBRAL DISC DEGENERATION , 08/22/2016 [place] LIU DO Ot R06.00 DYSPNEA, UNSPECIFIED 08/22/2016 JUAN F MADDEN [facility] FACP CCDS Ot A69.20 LYME DISEASE, UNSPECIFIED 08/22/2016 JUAN F MADDEN [facility] FACP CCDS Ot R00.2 PALPITATIONS 08/22/2016 JUAN F MADDEN [facility] FACP CCDS Ot R06.00 DYSPNEA, UNSPECIFIED 08/22/2016 JUAN F MADDEN [facility] FACP CCDS Ot R55 SYNCOPE AND COLLAPSE 08/22/2016 KAI LIU [employer] GOODS 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 Ot M25.561 PAIN IN RIGHT KNEE 08/23/2016 [...] DO Ot 724.2 LUMBAGO 03/07/2017 KAI LIU OPT[employer] GOODS 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 Ot 379.91 PAIN IN OR AROUND EYE [...] EXAMINATION 03/07/2017 IRVING ZALDIVAR MD Ot V72.81 [id number] CARDIOVASCULAR 03/07/2017 IRVING ZALDIVAR MD Ot V74.8 SCREEN-BACTERIAL DIS NEC 03/07/2017 IRVING ZALDIVAR MD Ot 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 03/07/2017 IRVING ZALDIVAR MD Ot 473.2 CHR ETHMOIDAL SINUSITIS 03/07/2017 IRVING ZALDIVAR MD Ot 474.00 CHRONIC TONSILLITIS 03/07/2017 IRVING ZALDIVAR MD Ot 478.0 HYPERTRPH NASAL TURBINAT 03/07/2017 KAI LIU [employer] GOODS 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 Ot 723.0 CERVICAL SPINAL STENOSIS 03/07/2017 CHARLOTTE LIU DO Ot 780.93 MEMORY LOSS 03/07/2017 CHARLOTTE LIU DO Ot 782.0 SKIN SENSATION DISTURB 03/07/2017 CHARLOTTE LIU DO Ot 611.71 MASTODYNIA 03/07/2017 KAI LIU [employer] GOODS 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 Ot 723.4 BRACHIAL NEURITIS NOS 03/07/2017 KAI LIU OPT[employer] GOODS 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 Ot 787.20 DYSPHAGIA, UNSPECIFIED 03/07/2017 JUAN F [...] R55 SYNCOPE AND COLLAPSE 03/07/2017 KAI LIU OPTICAL GOODS 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 Ot M25.561 PAIN IN RIGHT KNEE 03/07/2017 BHUPENDRA DESAI MD Ot M54.2 CERVICALGIA 03/07/2017 BHUPENDRA DESAI MD Ot Z12.31 ENCNTR SCREEN MAMMOGRAM FOR MALIGNANT NE 03/07/2017 BHUPENDRA DESAI MD Ot Z98.1 ARTHRODESIS STATUS 03/08/2017 BHUPENDRA DESAI MD Ot J84.10 PULMONARY FIBROSIS, UNSPECIFIED 03/14/2017 SALINA BARKLEY MD Ot K21.9 GASTRO-ESOPHAGEAL REFLUX DISEASE WITHOUT 03/14/2017 SALINA BARKLEY MD Ot K62.5 HEMORRHAGE OF ANUS AND RECTUM 03/14/2017 SALINA BARKLEY MD Ot Z01.818 ENCOUNTER FOR OTHER PREPROCEDURAL EXAMIN 03/14/2017 SALINA BARKLEY MD Ot K21.9 GASTRO-ESOPHAGEAL REFLUX DISEASE WITHOUT 03/14/2017 SALINA BARKLEY MD Ot K62.5 HEMORRHAGE OF ANUS AND RECTUM 03/14/2017 SALINA BARKLEY MD Ot Z01.818 ENCOUNTER FOR OTHER PREPROCEDURAL EXAMIN 03/14/2017 SALINA BARKLEY MD Ot K21.9 GASTRO-ESOPHAGEAL REFLUX DISEASE WITHOUT 03/14/2017 SALINA BARKLEY MD Ot K62.5 HEMORRHAGE OF ANUS AND RECTUM 03/14/2017 SALINA BARKLEY MD Ot Z01.818 ENCOUNTER FOR OTHER PREPROCEDURAL EXAMIN 03/15/2017 SALINA BARKLEY MD Ot K21.9 GASTRO-ESOPHAGEAL REFLUX DISEASE WITHOUT 03/15/2017 SALINA BARKLEY MD Ot K62.5 HEMORRHAGE OF ANUS AND RECTUM 03/15/2017 SALINA BARKLEY MD Ot Z01.818 ENCOUNTER FOR OTHER PREPROCEDURAL EXAMIN 03/15/2017 Ot 088.81 LYME DISEASE 03/15/2017 JUAN F MADDEN [facility], ALI FACP CCDS Ot A69.20 LYME DISEASE, UNSPECIFIED 03/15/2017 JUAN F MADDEN FACC, ALI FACP CCDS Ot R00.2 PALPITATIONS 03/15/2017 JUAN F MADDEN FAC, ALI FACP CCDS Ot R06.00 DYSPNEA, UNSPECIFIED 03/15/2017 JUAN F MADDEN FACC, ALI FACP CCDS Ot R55 SYNCOPE AND COLLAPSE 03/15/2017 SALINA BARKLEY MD, Ot E78.5 HYPERLIPIDEMIA, UNSPECIFIED 03/15/2017 SALINA BARKLEY MD Ot I10 ESSENTIAL (PRIMARY) HYPERTENSION 03/15/2017 SALINA BARKLEY MD Ot K21.0 GASTRO-ESOPHAGEAL REFLUX DISEASE WITH ES 03/15/2017 SALINA BARKLEY MD, Ot K29.60 OTHER GASTRITIS WITHOUT BLEEDING 03/15/2017 SALINA BARKLEY MD, Ot K44.9 DIAPHRAGMATIC HERNIA WITHOUT OBSTRUCTION 03/15/2017 SALINA BARKLEY MD, Ot K57.30 DVRTCLOS OF LG INT W/O PERFORATION OR AB 03/15/2017 SALINA BARKLEY MD Ot K64.1 SECOND DEGREE HEMORRHOIDS 03/15/2017 SALINA BARKLEY MD, Ot Z79.899 OTHER PENITENTIARY (CURRENT) DRUG THERAPY 03/15/2017 SALINA BARKLEY MD, Ot Z80.0 FAMILY HISTORY OF MALIGNANT NEOPLASM OF 03/16/2017 LLOYD MADDEN, BHUPENDRA Acevedo Ot J84.10 PULMONARY FIBROSIS, UNSPECIFIED 03/20/2017 SALINA BARKLEY MD, Ot K21.9 GASTRO-ESOPHAGEAL REFLUX DISEASE WITHOUT 03/20/2017 SALINA BARKLEY MD, Ot K62.5 HEMORRHAGE OF ANUS AND RECTUM 03/20/2017 SALINA BARKLEY MD Ot Z01.818 ENCOUNTER FOR OTHER PREPROCEDURAL EXAMIN 03/24/2017 SALINA BARKLEY MD, Ot E78.5 HYPERLIPIDEMIA, UNSPECIFIED 03/24/2017 SALINA BARKLEY MD, Ot I10 ESSENTIAL (PRIMARY) HYPERTENSION 03/24/2017 SALINA BARKLEY MD Ot K21.0 GASTRO-ESOPHAGEAL REFLUX DISEASE WITH ES 03/24/2017 SALINA BARKLEY MD Ot K29.60 OTHER GASTRITIS WITHOUT BLEEDING 03/24/2017 SALINA BARKLEY MD, Ot K44.9 DIAPHRAGMATIC HERNIA WITHOUT OBSTRUCTION 03/24/2017 SALINA BARKLEY MD Ot K57.30 DVRTCLOS OF LG INT W/O PERFORATION OR AB 03/24/2017 SALINA BARKLEY MD Ot K64.1 SECOND DEGREE HEMORRHOIDS 03/24/2017 SALINA BARKLEY MD Ot Z79.899 OTHER COATING MIXER TENDER (CURRENT) DRUG THERAPY 03/24/2017 SALINA BARKLEY MD, Ot Z80.0 FAMILY HISTORY OF MALIGNANT NEOPLASM OF 05/25/2017 Ot 346.90 MIGRAINE UNSPECIFIED W/O INTRACT MGRN W/ 05/25/2017 Ot 368.9 VISUAL DISTURBANCE NOS 05/25/2017 Ot 781.2 ABNORMALITY OF GAIT 05/25/2017 Ot 785.6 ENLARGEMENT LYMPH NODES 05/25/2017 Ot 785.9 CARDIOVAS SYS SYMP NEC 05/25/2017 Ot 473.9 CHRONIC SINUSITIS NOS 05/25/2017 Ot 785.6 ENLARGEMENT LYMPH NODES 05/25/2017 CHARLOTTE LIU DO Ot 719.43 JOINT PAIN-FOREARM 05/25/2017 CHARLOTTE LIU DO Ot 719.45 JOINT PAIN-PELVIS 05/25/2017 [place]LOTTE LIU DO Ot 724.2 LUMBAGO 05/25/2017 KAI LIU [employer] GOODS 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 Ot 379.91 PAIN IN OR AROUND EYE 05/25/2017 Ot 088.81 LYME DISEASE 05/25/2017 IRVING ZALDIVAR MD Ot 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 05/25/2017 IRVING ZALDIVAR MD Ot 473.9 CHRONIC SINUSITIS NOS 05/25/2017 IRVING ZALDIVAR MD Ot 478.0 HYPERTRPH NASAL TURBINAT 05/25/2017 IRVING ZALDIVAR MD Ot 780.79 OTH MALAISE FATIGUE 05/25/2017 IRVING ZALDIVAR MD Ot V12.09 PERSONAL HISTORY OTH SPEC INFECT ELIZABETH 05/25/2017 IRVING ZALDIVAR MD Ot V72.63 PRE-PROCEDURAL LABORATORY EXAMINATION 05/25/2017 IRVING ZALDIVAR MD Ot V72.81 [id number] CARDIOVASCULAR 05/25/2017 IRVING ZALDIVAR MD Ot V74.8 SCREEN-BACTERIAL DIS NEC 05/25/2017 IRVING ZALDIVAR MD Ot 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 05/25/2017 IRVING ZALDIVAR MD Ot 473.2 CHR ETHMOIDAL SINUSITIS 05/25/2017 IRVING ZALDIVAR MD Ot 474.00 CHRONIC TONSILLITIS 05/25/2017 IRVING ZALDIVAR MD Ot 478.0 HYPERTRPH NASAL TURBINAT 05/25/2017 KAI LIU [employer] GOODS 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 Ot 723.0 CERVICAL SPINAL STENOSIS 05/25/2017 CHARLOTTE LIU DO Ot 780.93 MEMORY LOSS 05/25/2017 CHARLOTTE LIU DO Ot 782.0 SKIN SENSATION DISTURB 05/25/2017 CHARLOTTE LIU DO Ot 611.71 MASTODYNIA 05/25/2017 KAI LIU [employer] GOODS 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 Ot 723.4 BRACHIAL NEURITIS NOS 05/25/2017 KAI LIU [employer] GOODS 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 Ot 787.20 DYSPHAGIA, UNSPECIFIED 05/25/2017 JUAN F AYALA, ALI FACP CCDS Ot A69.20 LYME DISEASE, UNSPECIFIED 05/25/2017 JUAN F MADDEN FACC, ALI FACP CCDS Ot R00.2 PALPITATIONS 05/25/2017 JUAN F MADDEN FACC, ALI FACP CCDS Ot R06.00 DYSPNEA, UNSPECIFIED 05/25/2017 JUAN F MADDEN FACC, ALI FACP CCDS Ot R55 SYNCOPE AND COLLAPSE 05/25/2017 JUAN F MADDEN FACC, ALI FACP CCDS Ot A69.20 LYME DISEASE, UNSPECIFIED 05/25/2017 JUAN F MADDEN FACC, ALI FACP CCDS Ot R00.2 PALPITATIONS 05/25/2017 JUAN F MADDEN FACC, ALI FACP CCDS Ot R06.00 DYSPNEA, UNSPECIFIED 05/25/2017 JUAN F MADDEN FACC, ALI FACP CCDS Ot R55 SYNCOPE AND COLLAPSE 05/25/2017 CHARLOTTE LIU DO Ot M51.34 OTHER INTERVERTEBRAL DISC DEGENERATION , 05/25/2017 CHARLOTTE LIU DO Ot R06.00 DYSPNEA, UNSPECIFIED 05/25/2017 JUAN F MADDEN FACC, ALI FACP CCDS Ot A69.20 LYME DISEASE, UNSPECIFIED 05/25/2017 JUAN F MADDEN FACC, ALI FACP CCDS Ot R00.2 PALPITATIONS 05/25/2017 JUAN F MADDEN FACC, ALI FACP CCDS Ot R06.00 DYSPNEA, UNSPECIFIED 05/25/2017 JUAN F MADDEN FACC, ALI FACP CCDS Ot R55 SYNCOPE AND COLLAPSE 05/25/2017 KAI LIU [employer] GOODS 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 Ot M25.561 PAIN IN RIGHT KNEE 05/25/2017 BHUPENDRA DESAI MD Ot M54.2 CERVICALGIA 05/25/2017 BHUPENDRA DESAI MD Ot Z12.31 ENCNTR SCREEN MAMMOGRAM FOR MALIGNANT NE 05/25/2017 BHUPENDRA DESAI MD Ot Z98.1 ARTHRODESIS STATUS 05/25/2017 BHUPENDRA DESAI MD Ot J84.10 PULMONARY FIBROSIS, UNSPECIFIED 05/25/2017 Ot 346.90 MIGRAINE UNSPECIFIED W/O INTRACT MGRN W/ 05/25/2017 Ot 368.9 VISUAL DISTURBANCE NOS 05/25/2017 Ot 781.2 ABNORMALITY OF GAIT 05/25/2017 Ot 785.6 ENLARGEMENT LYMPH NODES 05/25/2017 Ot 785.9 CARDIOVAS SYS SYMP NEC 05/25/2017 Ot 473.9 CHRONIC SINUSITIS NOS 05/25/2017 Ot 785.6 ENLARGEMENT LYMPH NODES 05/25/2017 CHARLOTTE LIU DO Ot 719.43 JOINT PAIN-FOREARM 05/25/2017 CHARLOTTE LIU DO Ot 719.45 JOINT PAIN-PELVIS 05/25/2017 CHARLOTTE LIU DO Ot 724.2 LUMBAGO 05/25/2017 KAI LIU [employer] 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 Ot 379.91 PAIN IN OR AROUND EYE 05/25/2017 Ot 088.81 LYME DISEASE 05/25/2017 IRVING ZALDIVAR MD Ot 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 05/25/2017 IRVING ZALDIVAR MD Ot 473.9 CHRONIC SINUSITIS NOS 05/25/2017 IRVING ZALDIVAR MD Ot 478.0 HYPERTRPH NASAL TURBINAT 05/25/2017 IRVING ZALDIVAR MD Ot 780.79 OTH MALAISE FATIGUE 05/25/2017 IRVING ZALDIVAR MD Ot V12.09 PERSONAL HISTORY OTH SPEC INFECT ELIZABETH 05/25/2017 IRVING ZALDIVAR MD Ot V72.63 PRE-PROCEDURAL LABORATORY EXAMINATION 05/25/2017 IRVING ZALDIVAR MD Ot V72.81 [id number] CARDIOVASCULAR 05/25/2017 IRVING ZALDIVAR MD Ot V74.8 SCREEN-BACTERIAL DIS NEC 05/25/2017 IRVING ZALDIVAR MD Ot 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 05/25/2017 IRVING ZALDIVAR MD Ot 473.2 CHR ETHMOIDAL SINUSITIS 05/25/2017 IRVING ZALDIVAR MD Ot 474.00 CHRONIC TONSILLITIS 05/25/2017 IRVING ZALDIVAR MD Ot 478.0 HYPERTRPH NASAL TURBINAT 05/25/2017 KAI LIU [employer] GOODS 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 Ot 723.0 CERVICAL SPINAL STENOSIS 05/25/2017 CHARLOTTE LIU DO Ot 780.93 MEMORY LOSS 05/25/2017 CHARLOTTE LIU DO Ot 782.0 SKIN SENSATION DISTURB 05/25/2017 CHARLOTTE LIU DO Ot 611.71 MASTODYNIA 05/25/2017 KAI LIU [employer] 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 Ot 723.4 BRACHIAL NEURITIS NOS 05/25/2017 KAI LIU [employer] GOODS 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 Ot 787.20 DYSPHAGIA, UNSPECIFIED 05/25/2017 JUAN F MADDEN FACC, ALI FACP CCDS Ot A69.20 LYME DISEASE, UNSPECIFIED 05/25/2017 JUAN F MADDEN FACC, ALI FACP CCDS Ot R00.2 PALPITATIONS 05/25/2017 JUAN F MADDEN FACC, ALI FACP CCDS Ot R06.00 DYSPNEA, UNSPECIFIED 05/25/2017 JUAN F MADDEN FACC, ALI FACP CCDS Ot R55 SYNCOPE AND COLLAPSE 05/25/2017 JUAN F MADDEN FACC, ALI FACP CCDS Ot A69.20 LYME DISEASE, UNSPECIFIED 05/25/2017 JUAN F MADDEN FACC, ALI FACP CCDS Ot R00.2 PALPITATIONS 05/25/2017 JUAN F MADDEN FACC, ALI FACP CCDS Ot R06.00 DYSPNEA, UNSPECIFIED 05/25/2017 JUAN F MADDEN FACC, ALI FACP CCDS Ot R55 SYNCOPE AND COLLAPSE 05/25/2017 CHARLOTTE LIU DO Ot M51.34 OTHER INTERVERTEBRAL DISC DEGENERATION , 05/25/2017 CHARLOTTE LIU DO Ot R06.00 DYSPNEA, UNSPECIFIED 05/25/2017 JUAN F MADDEN FACC, ALI FACP CCDS Ot A69.20 LYME DISEASE, UNSPECIFIED 05/25/2017 JUAN F MADDEN FACC, ALI FACP CCDS Ot R00.2 PALPITATIONS 05/25/2017 JUAN F MADDEN FACC, ALI FACP CCDS Ot R06.00 DYSPNEA, UNSPECIFIED 05/25/2017 JUAN F MADDEN FACC, ALI FACP CCDS Ot R55 SYNCOPE AND COLLAPSE 05/25/2017 KAI LIU Ot M25.561 PAIN IN RIGHT KNEE 05/25/2017 BHUPENDRA DESAI MD Ot M54.2 CERVICALGIA 05/25/2017 BHUPENDRA DESAI MD Ot Z12.31 ENCNTR SCREEN MAMMOGRAM FOR MALIGNANT NE 05/25/2017 BHUPENDRA DESAI MD Ot Z98.1 ARTHRODESIS STATUS 05/25/2017 BHUPENDRA DESAI MD Ot J84.10 PULMONARY FIBROSIS, UNSPECIFIED 05/26/2017 Ot 346.90 MIGRAINE UNSPECIFIED W/O INTRACT MGRN W/ 05/26/2017 Ot 368.9 VISUAL DISTURBANCE NOS 05/26/2017 Ot 781.2 ABNORMALITY OF GAIT 05/26/2017 Ot 785.6 ENLARGEMENT LYMPH NODES 05/26/2017 Ot 785.9 CARDIOVAS SYS SYMP NEC 05/26/2017 Ot 473.9 CHRONIC SINUSITIS NOS 05/26/2017 Ot 785.6 ENLARGEMENT LYMPH NODES 05/26/2017 CHARLOTTE LIU DO Ot 719.43 JOINT PAIN-FOREARM 05/26/2017 CHARLOTTE LIU DO Ot 719.45 JOINT PAIN-PELVIS 05/26/2017 CHARLOTTE ILU DO Ot 724.2 LUMBAGO 05/26/2017 KAI LIU Ot 379.91 PAIN IN OR AROUND EYE 05/26/2017 Ot 088.81 LYME DISEASE 05/26/2017 IRVING ZALDIVAR MD Ot 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 05/26/2017 IRVING ZALDIVAR MD Ot 473.9 CHRONIC SINUSITIS NOS 05/26/2017 IRVING ZALDIVAR MD Ot 478.0 HYPERTRPH NASAL TURBINAT 05/26/2017 IRVING ZALDIVAR MD Ot 780.79 OTH MALAISE FATIGUE 05/26/2017 IRVING ZALDIVAR MD Ot V12.09 PERSONAL HISTORY OTH SPEC INFECT ELIZABETH 05/26/2017 IRVING ZALDIVAR MD Ot V72.63 PRE-PROCEDURAL LABORATORY EXAMINATION 05/26/2017 IRVING ZALDIVAR MD Ot V72.81 [id number] CARDIOVASCULAR 05/26/2017 IRVING ZALDIVAR MD Ot V74.8 SCREEN-BACTERIAL DIS NEC 05/26/2017 IRVING ZALDIVAR MD Ot 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 05/26/2017 IRVING ZALDIVAR MD Ot 473.2 CHR ETHMOIDAL SINUSITIS 05/26/2017 KAYLEY MADDEN, IRVING Esquivel Ot 474.00 CHRONIC TONSILLITIS 05/26/2017 KAYLEY MADDEN, IRVING Esquivel Ot 478.0 HYPERTRPH NASAL TURBINAT 05/26/2017 KAI LIU 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 Ot 723.0 CERVICAL SPINAL STENOSIS 05/26/2017 CHARLOTTE LIU DO Ot 780.93 MEMORY LOSS 05/26/2017 CHARLOTTE LIU DO Ot 782.0 SKIN SENSATION DISTURB 05/26/2017 CHARLOTTE LIU DO Ot 611.71 MASTODYNIA 05/26/2017 KAI LIU 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 Ot 723.4 BRACHIAL NEURITIS NOS 05/26/2017 KAI LIU 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 Ot 787.20 DYSPHAGIA, UNSPECIFIED 05/26/2017 JUAN F MADDEN [facility], ALI FACP CCDS Ot A69.20 LYME DISEASE, UNSPECIFIED 05/26/2017 JUAN F MADDEN FAC, ALI FACP CCDS Ot R00.2 PALPITATIONS 05/26/2017 JUAN F MADDEN FAC, ALI FACP CCDS Ot R06.00 DYSPNEA, UNSPECIFIED 05/26/2017 JUAN F MADDEN FAC, ALI FACP CCDS Ot R55 SYNCOPE AND COLLAPSE 05/26/2017 JUAN F MADDEN FAC, ALI FACP CCDS Ot A69.20 LYME DISEASE, UNSPECIFIED 05/26/2017 JUAN F MADDEN FAC, ALI FACP CCDS Ot R00.2 PALPITATIONS 05/26/2017 JUAN F MADDEN FAC, ALI FACP CCDS Ot R06.00 DYSPNEA, UNSPECIFIED 05/26/2017 JUAN F MADDEN [facility], ALI FACP CCDS Ot R55 SYNCOPE AND COLLAPSE 05/26/2017 CHARLOTTE LIU DO Ot M51.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1 ARTHRODESIS STATUS 05/26/2017 BHUPENDRA DESAI MD Ot J84.10 PULMONARY FIBROSIS, UNSPECIFIED Procedures Results Encounters ACCT No. Visit Date/Time Discharge Status Pt. Type Provider Facility Loc./Unit Complaint [id number] 03/15/2017 14:04:00 2016 17:50:00 DIS Outpatient SALINA BARKLEY MD [facility] ENDO RECTAL BLEEDING/REFLUX/DYSPHAGIA [id number] 03/14/2017 10:00:00 2016 10:53:00 DIS Outpatient SALINA BARKLEY MD [facility] PREOP RECTAL BLEEDING/REFLUX/DYSPHAGIA [id number] 03/13/2017 11:15:00 2016 23:59:59 CLS Preadmit SALINA BARKLEY MD [facility] RAD THYROID MASS, NECK MASS [id number] 03/07/2017 11:47:00 2016 23:59:59 CLS Outpatient BHUPENDRA DESAI MD [facility] RAD HX LUNG NODULE [id number] 02/15/2017 10:30:00 2016 23:59:59 CLS Preadmit BHUPENDRA DESAI MD [facility] RAD SCREENING [id number] 08/22/2016 11:28:00 2015 23:59:59 CLS Outpatient BHUPENDRA DESAI MD [facility] RAD CERVICAL NECK PAIN, HX OF CERVICAL FUSION [id number] 03/30/2016 15:01:00 2015 23:59:59 CLS Outpatient KAI LIU [facility] RAD R KNEE PAIN,M25.561 [id number] 09/29/2015 11:30:00 2015 23:59:59 CLS Preadmit JUAN F MADDEN FACC, ALI FACP CCDS [facility] PALP,SYNCOPE [id number] 07/24/2015 06:58:00 2015 00:01:00 DIS Outpatient JUAN F MADDEN FACC, ALI FACP CCDS [facility] CARD PALP,SYNCOPE [id number] 08/24/2015 13:56:00 2014 23:59:59 CLS Outpatient CHARLOTTE LIU DO [facility] RT DDD,DYSPNEA [id number] 07/16/2015 06:48:00 2014 16:40:00 DIS Outpatient JUAN F MADDEN FACC, MARCI FACP CCDS [facility] CEDEÑO,CP,PALPITATIONS [id number] 07/10/2015 16:17:00 2014 23:59:59 CLS Outpatient CHARLOTTE LIU DO [facility] RAD DDD,DYSPNEA [id number] 07/01/2015 14:25:00 2014 23:59:59 CLS Outpatient CHARLOTTE LIU DO [facility] CATH CHEST PAIN [id number] 06/30/2015 07:59:00 2014 23:59:59 CLS Outpatient JUAN F MADDEN FACC, ALI FACP CCDS [facility] CARD LYME DISEASE, PALPITATIONS , CEDEÑO, SYNCOPE [id number] 06/26/2015 07:42:00 2014 23:59:59 CLS Outpatient JUAN F MADDEN FACC, ALI FACP CCDS [facility] LYME DISEASE, PALPITATIONS , CEDEÑO, SYNCOPE [id number] 06/02/2015 08:55:00 2014 23:59:59 CLS Out[facility] [facility] CERVICAL PAIN,RADICULOPATHY , DIFFICULTY SWALLOWING [id number] 04/30/2015 12:45:00 2014 23:59:59 CLS Outpatient CHARLOTTE LIU DO [facility] RAD SCREENING [id number] 03/16/2015 21:29:00 2014 02:06:00 DIS Emergency CHARLOTTE RODGERS DO [facility] ER HEADACHE [id number] 10/13/2014 16:36:00 2014 23:59:59 CLS Outpatient SABRINA KAITOVA Metzger APRN [facility] QUICK [id number] 10/11/2014 12:59:00 2014 15:35:00 DIS Inpatient CHARLOTTE LIU DO [facility] 4TH LEFT SIDED FACIAL DROOP, TREMOR, HEADACHE [id number] 09/16/2014 13:34:00 2013 23:59:59 CLS Outpatient CHARLOTTE LIU DO [facility] RAD MEMORY LOSS, PARASTHESIA [id number] 04/10/2014 08:39:00 2013 10:08:00 DIS Emergency PREM CARSON MD [facility] ER HEADACHE/LIGHTHEADED [id number] 09/27/2013 12:28:00 2013 23:59:59 CLS Outpatient KAI LIU [employer] 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 [facility] RAD NECK PAIN,RT ARM PAIN [id number] 09/19/2013 19:03:00 2013 22:13:00 DIS Emergency GERMAINE MADDEN, BUSTER Cooney [facility] ER R ARM TINGLY [id number] 08/30/2013 06:25:00 2012 23:59:59 CLS Outpatient IRVING ZALDIVAR MD [facility] SDC CHRONIC SINUSITIS;DEVIATED SEPTUM; SEE NOTES [id number] 08/26/2013 07:22:00 2012 23:59:59 CLS Outpatient IRVING ZALDIVAR MD [facility] PREOP CHRONIC SINUSITIS;DEVIEATED SEPTUM; SEE NOTES [id number] 07/09/2013 21:34:00 2012 22:16:00 DIS Emergency SUSHIL SANCHEZ APRN [facility] ER POSS BROKEN TOE ON L FOOT [id number] 06/10/2013 16:46:00 2012 20:21:00 DIS Emergency BRUNINOGEMANN MD, BUSTER Cooney [facility] ER CONGESTION, CHEST PAIN, AND LYMES DISEASE [id number] 05/13/2013 10:29:00 2012 00:01:00 DIS Outpatient 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[facility] SURG RCR BORRELIOSIS [id number] 03/07/2013 13:12:00 2012 23:59:59 CLS Outpatient LIUKAI GUERRA [employer] 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 [facility] RAD RT EYE PAIN [id number] 01/17/2013 15:59:00 2012 23:59:59 CLS Outpatient CHALROTTE LIU DO [facility] RAD LUMBALGO L HIP PAIN, L WRIST PAIN [id number] 11/16/2014 16:40:00 Document Registration [id number] 10/11/2014 19:06:00 Document Registration [id number] 10/11/2014 19:06:00 Document Registration [id number] 10/11/2014 19:06:00 Document Registration [id number] 10/11/2014 19:06:00 Document Registration [id number] 10/11/2014 09:42:00 Document Registration [id number] 10/11/2014 09:41:00 Document Registration [id number] 05/17/2013 00:00:00 Document Registration [id number] 09/13/2012 05:44:00 Document Registration [id number] 07/13/2012 08:05:00 Document Registration [id number] 06/18/2012 12:51:00 Document Registration [id number] 03/02/2012 09:11:00 Document Registration [id number] 09/06/2011 00:00:00 Document Registration [id number] 07/20/2011 07:46:00 Document Registration [id number] 07/13/2011 08:10:00 Document Registration [id number] 07/11/2011 09:54:00 Document Registration [id number] 06/09/2011 08:01:00 Document Registration [id number] 06/07/2011 16:36:00 Document Registration [id number] 04/06/2011 08:00:00 Document Registration [id number] 03/30/2011 12:45:00 Document Registration [id number] 03/03/2011 10:16:00 Document Registration [id number] 03/02/2011 15:49:00 Document Registration [id number] 04/25/2010 09:33:00 Document Registration [id number] 04/23/2010 18:27:00 Document Registration [id number] 02/22/2010 05:45:00 Document Registration [id number] 02/16/2010 09:33:00 Document Registration [id number] 02/01/2010 13:15:00 Document Registration [id number] 01/29/2010 12:48:00 Document Registration [id number] 11/09/2009 12:27:00 Document Registration [id number] 11/04/2009 08:28:00 Document Registration [id number] 05/20/2009 12:55:00 Document Registration
[2017-06-28] MEDS ORDERED: ASPIRIN 81 MG CHEW (CHILDREN'S ASA) PO ONE (21:30)
[2017-06-28] MEDS ORDERED: LIDOCAINE 2% VISCOUS 15 ML UDC PO ONE (21:45)
[2017-06-28] MEDS ORDERED: ANTACID SUSP 30 ML UDC (MYLANTA) PO ONE (21:45)
[2017-06-28] MEDS ORDERED: ONDANSETRON 4 MG/2 ML (SDV) Z0FRAN IVP ONE (21:45)
[2017-06-28] MEDS ORDERED: FAMOTIDINE 20MG/2ML IV (PEPCID) IVP ONE (21:45)
[2017-06-28 21:48] LABS: BASOPHILS % (AUTO) 0 % (0-10); EOSINOPHILS % (AUTO) 0 % (0-10); LYMPHOCYTES # (AUTO) 2.8 X 10^3 (1.0-4.0); LYMPHOCYTES % (AUTO) 23 % (12-44); MEAN CORPUSCULAR HEMOGLOBIN 29 PG (25-34); MEAN CORPUSCULAR HGB CONC 35 G/DL (32-36); MEAN CORPUSCULAR VOLUME 84 FL (80-99); MONOCYTES # (AUTO) 0.6 X 10^3 (0.0-1.0); MONOCYTES % (AUTO) 5 % (0-12); NEUTROPHILS # (AUTO) 8.9 X 10^3 (1.8-7.8); NEUTROPHILS % (AUTO) 72 % (42-75); PLATELET COUNT 277 10^3/uL (130-400); RED CELL DISTRIBUTION WIDTH 13.4 % (10.0-14.5); WHITE BLOOD COUNT 12.3 10^3/uL (4.3-11.0)
[2017-06-28 21:58] LABS: INR 0.9 (0.8-1.4); PROTHROMBIN TIME PATIENT 12.3 SEC (12.2-14.7)
--- NOTE | 2017-06-28 22:03 | ED Chest Pain ---
General Chief Complaint: Chest Pain Stated Complaint: CHEST PAIN Nursing Triage Note: c/o chest pain, patient reports having leg surgery yesterday Nursing Sepsis Screen: No Definite Risk Source: patient, old records Exam Limitations: no limitations History of Present Illness Time seen by provider: 21:25 Initial Comments This 42-year-old woman presents to the emergency room with complaints of a throbbing chest tightness and lower back pain that started around 16:30. The pain in the back started first. She denies any nausea, vomiting, or diarrhea, but has maybe had some constipation. She has had some hot flashes and subjective fever. She reports the pain is coming in waves. She had surgery by Dr. Gómez on the right knee yesterday and pain started as she was removing her dressings this afternoon. She doesn't particularly feel short of air but states it feels tight in her chest. Allergies and Home Medications Allergies Coded Allergies: Penicillins (Verified Allergy, Unknown, 03/15/17) hydroxychloroquine (Verified Allergy, Unknown, 07/01/15) Home Medications Atorvastatin Calcium 10 Mg Tablet, 10 MG PO three times a week, (Reported) Biotin 2,500 Mcg Capsule, 2,500 MCG PO DAILY, (Reported) Butalb/Acetaminophen/Caffeine 1 Each Capsule, 1 CAP PO Q8H PRN for HEADACHE, ( Reported) Hydrochlorothiazide 25 Mg Tablet, 25 MG PO DAILY, (Reported) Lactobacillus Acidophilus 1 Each Capsule, 1 TAB PO DAILY, (Reported) Methylphenidate HCl 20 Mg Tablet, 20 MG PO BID, (Reported) Multivit with Calcium,Iron,Min 1 Each Tablet, 1 EACH PO DAILY, (Reported) Pantoprazole Sodium 40 Mg Tablet.dr, 40 MG PO DAILY, #90 Prescribed by: SALINA BARKLEY on 03/15/17 [id number] Quetiapine Fumarate 25 Mg Tablet, 25 MG PO HS, (Reported) Ubidecarenone 100 Mg Capsule, 100 MG PO DAILY, (Reported) Venlafaxine HCl 150 Mg Cap.er.24h, 150 MG PO DAILY, (Reported) Review of Systems Constitutional: no symptoms reported EENTM: No Symptoms Reported Respiratory: No Symptoms Reported Cardiovascular: See HPI Gastrointestinal: No Symptoms Reported Genitourinary: No Symptoms Reported Musculoskeletal: no symptoms reported Skin: no symptoms reported Psychiatric/Neurological: No Symptoms Reported Endocrine: No Symptoms Reported Past Ijbrgei-Buvtzf-Mbrjyf Hx Patient Social History Alcohol Use: Denies Use Recreational Drug Use: No Smoking Status: Never a Smoker Recent Foreign Travel: No Contact w/Someone Who Travel: No Recent Infectious Disease Expo: No Recent Hopitalizations: No Physical Abuse: No Sexual Abuse: No Immunizations Up To Date Tetanus Booster (TDap): Less than 5yrs PED Vaccines UTD: No Date of Influenza Vaccine: Jun 18, 2015 Seasonal Allergies Seasonal Allergies: Yes Surgeries History of Surgeries: Yes (7 eyes, OVARAIAN CYST-LEFT, C5-7, deviated septum, r knee, r ankle) Surgeries: Adenoidectomy, Section, Eye Surgery, Gallbladder, Hysterectomy, Orthopedic, Tonsillectomy Respiratory History of Respiratory Disorde: No Currently Using CPAP: No Currently Using BIPAP: No Cardiovascular History of Cardiac Disorders: Yes (MITRAL VALVE PROLAPSE, diastolic dysfunction ) Cardiac Disorders: High Cholesterol, Hypertension, Irregular Heartbeat Neurological History of Neurological Disord: Yes (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, lyme's ) Neurological Disorders: Headaches /Migraines Reproductive System Hx Reproductive Disorders: No Sexually Transmitted Disease: No HIV/AIDS: No 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 Genitourinary History of Genitourinary Disor: Yes Genitourinary Disorders: UTI-Chronic Gastrointestinal History of Gastrointestinal Di: Yes (history of "stomach diverticuli") Gastrointestinal Disorders: Gastroesophageal Reflux Musculoskeletal History of Musculoskeletal Dis: Yes (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; c5- 7 fuxion; bulging disc lumbar spin) Musculoskeletal Disorders: Degenerate Disk Disease, Arthritis, Scoliosis Endocrine History of Endocrine Disorders: Yes Endocrine Disorders: Adrenal Disease HEENT Loss of Vision: Left Cancer History of Cancer: No Psychosocial History of Psychiatric Problem: Yes Behavioral Health Disorders: Sleep Difficulties, Anxiety, Depression Suicide Risk Score: 0 Integumentary History of Skin or Integumenta: No Blood Transfusions History of Blood Disorders: Yes (hx of HYPERCOAGULATION) Family Medical History Significant Family History: Heart Disease, CAD Under 55 Years Old, Diabetes, Lung Disease Family Medial History: Cardiovascular disease 19 FATHER Diabetes mellitus 19 MOTHER FH: kidney cancer 19 MOTHER Physical Exam Vital Signs Vital Sign - Last 12Hours Capillary Refill : Less Than 3 Seconds General Appearance: WD/WN, Mild Distress HEENT: Normal ENT Inspection, Pharynx Normal, Other (vacant left globe. 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 Skin: Normal Color, Warm/Dry Progress/Results/Core Measures Results/Orders Lab Results Laboratory Tests Test 06/28/17 21:40 06/28/17 22:10 Range/Units White Blood Count 12.3 H 4.3-11.0 10^3/uL Red Blood Count 4.70 4.35-5.85 10^6/uL Hemoglobin 13.8 11.5-16.0 G/DL Hematocrit 39 35-52 % Mean Corpuscular Volume 84 80-99 FL Mean Corpuscular Hemoglobin 29 25-34 PG Mean Corpuscular Hemoglobin Concent 35 32-36 G/DL Red Cell Distribution Width 13.4 10.0-14.5 % Platelet Count 277 130-400 10^3/uL Mean Platelet Volume 10.0 7.4-10.4 FL Neutrophils (%) (Auto) 72 42-75 % Lymphocytes (%) (Auto) 23 12-44 % Monocytes (%) (Auto) 5 0-12 % Eosinophils (%) (Auto) 0 0-10 % Basophils (%) (Auto) 0 0-10 % Neutrophils # (Auto) 8.9 H 1.8-7.8 X 10^3 Lymphocytes # (Auto) 2.8 1.0-4.0 X 10^3 Monocytes # (Auto) 0.6 0.0-1.0 X 10^3 Eosinophils # (Auto) 0.0 0.0-0.3 10^3/uL Basophils # (Auto) 0.0 0.0-0.1 10^3/uL Prothrombin Time 12.3 12.2-14.7 SEC INR Comment 0.9 0.8-1.4 Activated Partial Thromboplast Time 28 24-35 SEC Sodium Level 142 135-145 MMOL/L Potassium Level 2.9 L 3.6-5.0 MMOL/L Chloride Level 109 H 98-107 MMOL/L Carbon Dioxide Level 22 21-32 MMOL/L Anion Gap 11 5-14 MMOL/L Blood Urea Nitrogen 7 7-18 MG/DL Creatinine 0.77 0.60-1.30 MG/DL Estimat Glomerular Filtration Rate > 60 BUN/Creatinine Ratio 9 Glucose Level 140 H 70-105 MG/DL Calcium Level 8.9 8.5-10.1 MG/DL Magnesium Level 2.1 1.8-2.4 MG/DL Total Bilirubin 0.5 0.1-1.0 MG/DL Aspartate Amino Transf (AST/SGOT) 18 5-34 U/L Alanine Aminotransferase (ALT/SGPT) 19 0-55 U/L Alkaline Phosphatase 106 40-136 U/L Myoglobin 13.8 10.0-92.0 NG/ML Troponin I < 0.30 <0.30 NG/ML Total Protein 6.5 6.4-8.2 GM/DL Albumin 3.8 3.2-4.5 GM/DL Lipase 41 8-78 U/L Urine Color YELLOW Urine Clarity CLEAR Urine pH 6.5 5-9 Urine Specific [place] 1.015 L 1.016-1.022 Urine Protein NEGATIVE NEGATIVE Urine Glucose (UA) NEGATIVE NEGATIVE Urine Ketones NEGATIVE NEGATIVE Urine Nitrite NEGATIVE NEGATIVE Urine Bilirubin NEGATIVE NEGATIVE Urine Urobilinogen NORMAL NORMAL MG/DL Urine Leukocyte Esterase NEGATIVE NEGATIVE Urine RBC (Auto) NEGATIVE NEGATIVE Urine RBC NONE /HPF Urine WBC NONE /HPF Urine Squamous Epithelial Cells 0-2 /HPF Urine Crystals PRESENT H /LPF Urine Calcium Oxalate Crystals FEW H /LPF Urine Bacteria FEW H /HPF Urine Casts NONE /LPF Urine Mucus NEGATIVE /LPF Urine Culture Indicated NO My Orders Orders - BUSTER HERRON MD Lidocaine 2% Viscous 15 Ml (Xylocaine Vi (06/28/17 21:45) Antacid Suspension (Mylanta Suspension (06/28/17 21:45) Famotidine Injection (Pepcid Injection) (06/28/17 21:45) Ondansetron Injection (Zofran Injectio (06/28/17 21:45) Ua Culture If Indicated (06/28/17 21:55) Potassium Chloride (Tablet) (Klor Con Ta (06/28/17 22:45) Lipase (06/28/17 22:34) Potassium Cl 10meq/50ml Ivpb (Kcl 10 Meq (06/28/17 22:45) Ns Iv 500 Ml (Sodium Chloride 0.9%) (06/28/17 22:45) Ns Iv 500 Ml (Sodium Chloride 0.9%) (06/28/17 22:53) Abdomen/Kub 1view (06/28/17 23:02) Medications Given in ED Current Medications Medications Dose Ordered Sig/Jose Cralos Route Start Time Stop Time Status Last Admin Dose Admin Al Hydrox/Mg Hydrox/Simethicone 30 ml ONCE ONCE PO 06/28/17 21:45 06/28/17 21:46 DC 06/28/17 22:04 30 ML Aspirin 324 mg ONCE ONCE PO 06/28/17 21:30 06/28/17 21:31 DC 06/28/17 22:02 324 MG Famotidine 20 mg ONCE ONCE IVP 06/28/17 21:45 06/28/17 21:46 DC 06/28/17 22:03 20 MG Lidocaine HCl 15 ml ONCE ONCE PO 06/28/17 21:45 06/28/17 21:46 DC 06/28/17 22:04 15 ML Ondansetron HCl 8 mg ONCE ONCE IVP 06/28/17 21:45 06/28/17 21:46 DC 06/28/17 22:02 8 MG Potassium Chloride 40 meq ONCE ONCE PO 06/28/17 22:45 06/28/17 22:46 DC 06/28/17 22:46 40 MEQ Potassium Chloride 50 ml @ 50 mls/hr ONCE ONCE IV 06/28/17 22:45 06/28/17 23:44 DC 06/28/17 22:46 50 MLS/HR Sodium Chloride 500 ml @ 0 mls/hr Q0M ONCE IV 06/28/17 22:53 06/28/17 22:54 DC 06/28/17 22:56 999 MLS/HR Vital Signs/I&O Vital Sign - Last 12Hours 06/28/17 06/28/17 06/28/17 21:09 21:09 23:58 Temp 98.2 98.2 Pulse 113 79 Resp 18 18 B/P (MAP) 160/104 Pulse Ox 99 98 O2 Delivery Room Air Room Air Room Air Blood Pressure Mean: 122 Progress Note #1: Time: 22:56 Progress Note GI cocktail and Pepcid did not significantly improve her pain. She was still having waves of pain in the lower sternal area. On reexamination, she was found to have some epigastric tenderness. Lipase was added to her workup. Patient did comment also that she may be a little constipated. I did discuss the anomalous RCA with Dr. Ambriz. He did not feel the patient's presentation was consistent with an ischemic anomalous vessel. Patient was found to have significant hypokalemia. Her potassium was 2.9. 40 mEq of potassium were ordered orally and 10 mEq her ordered by IV route. Progress Note #2: Progress Note Patient was no longer complaining of pain after replacement of potassium. She did appear to have some constipation on her abdominal x-ray. ECG Initial ECG Impression Date: Jun 28, 2017 Initial ECG Impression Time: 21:25 Initial ECG Rate: 114 Initial ECG Rhythm: S.Tach Comment Sinus tachycardia with nonspecific ST changes. No discrete ST elevation or depression. Diagnostic Imaging Diagonstic Imaging: Xray Plain Films/CT/US/NM/MRI: chest Comments Chest x-ray viewed by me and report reviewed. See report below: NAME: RAKEL JIMENEZ [facility] REC#: [id number] PT STATUS: REG ER : 1975 PHYSICIAN: SUSHIL SANCHEZ APRN ADMIT DATE: 06/28/17/ER Draft Date of Exam:06/28/17 CHEST 1 VIEW, AP/PA ONLY INDICATION: Chest pain starting today. COMPARISON STUDY: Chest from July 01, 2015. FINDINGS: Frontal view of the chest demonstrates the lungs to be clear. Heart, mediastinum and pulmonary vascularity are normal. Postoperative changes are present in the spine. IMPRESSION: Normal chest. Dictated on workstation # [id number] Dict: 06/28/172157 Trans: 06/28/172199 [facility] [id number] Interpreted by: TREMAYNE ROCHA MD Diagonstic Imaging: Xray Plain Films/CT/US/NM/MRI: abdomen, pelvis Comments Abdominal x-ray viewed by me. Report not yet available. There is a significant amount of stool burden within the colon. Departure Impression Impression: Primary Impression: Hypokalemia Additional Impressions: Atypical chest pain Epigastric pain Disposition: 01 HOME, SELF-CARE Condition: Improved Departure-Patient Inst. Decision time for Depature: 23:30 Referrals: BHUPENDRA DESAI MD (PCP/Family) Primary Care Physician Patient Instructions: Hypokalemia Add. 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 Over the next few days eat some foods high in potassium such as bananas and yogurt. Discuss use of hydrochlorothiazide with your doctors as hydrochlorothiazide may be contributing to your low potassium. Return to the emergency room if symptoms worsen. You may try antacid medication such as omeprazole or Pepcid if the upper abdominal pain continues. Your pain may be caused by constipation as evidenced by your abdominal x-ray. You may try stool softeners such as Colace or a gentle laxative such as MiraLAX (polyethylene glycol) once or twice daily. All discharge instructions reviewed with patient and/or family. Voiced understanding. BUSTER HERRON MD Jun 28, 2017 22:03
[2017-06-28 22:08] LABS: ALANINE AMINOTRANSFERASE 19 U/L (0-55); ALBUMIN 3.8 GM/DL (3.2-4.5); ANION GAP 11 MMOL/L (5-14); ASPARTATE AMINO TRANSFERASE 18 U/L (5-34); BILIRUBIN,TOTAL 0.5 MG/DL (0.1-1.0); BLOOD UREA NITROGEN 7 MG/DL (7-18); BUN/CREATININE RATIO 9; CALCIUM 8.9 MG/DL (8.5-10.1); CARBON DIOXIDE 22 MMOL/L (21-32); CHLORIDE 109 MMOL/L (98-107); CREATININE SERUM 0.77 MG/DL (0.60-1.30); GFR ESTIMATED > 60; GLUCOSE 140 MG/DL (70-105); MAGNESIUM 2.1 MG/DL (1.8-2.4); MYOGLOBIN SERUM 13.8 NG/ML (10.0-92.0); POTASSIUM 2.9 MMOL/L (3.6-5.0); SODIUM 142 MMOL/L (135-145); TOTAL PROTEIN 6.5 GM/DL (6.4-8.2)
[2017-06-28 22:26] LABS: BILIRUBIN,URINE NEGATIVE (NEGATIVE); KETONES,URINE NEGATIVE (NEGATIVE); LEUKOCYTE ESTERASE ,URINE NEGATIVE (NEGATIVE); NITRITE,URINE NEGATIVE (NEGATIVE); PH,URINE 6.5 (5-9); PROTEIN,URINE NEGATIVE (NEGATIVE); UROBILINOGEN,URINE NORMAL (NORMAL)
[2017-06-28 22:32] LABS: CALCIUM OXALATE CRYSTALS,UR FEW /LPF; SQUAMOUS EPITHELIAL CELL,UR 0-2 /HPF
[2017-06-28] MEDS ORDERED: POTASSIUM CL 10MEQ/50ML IVPB 50 ML IV ONE (22:45)
[2017-06-28] MEDS ORDERED: KCL 10 MEQ TAB (MICRO K) PO ONE (22:45)
[2017-06-28] MEDS ORDERED: NS IV 500 ML 500 ML ONE (22:45)
[2017-06-28] MEDS ORDERED: NS IV 500 ML 500 ML IV ONE (22:53)
[2017-06-28 23:58] VITALS: BP 143/101
--- NOTE | 2017-06-29 06:38 | Diagnostic Imaging Report ---
EXAMINATION: Abdomen at 11:19 PM. INDICATION: Abdominal pain 2 views were obtained. There is gas in both the large and small bowel in a nonspecific fashion. There is no evidence for a bowel obstruction. There does appear to be a fair amount of fecal material in the transverse colon. This appearance is similar to the prior lumbar spine exam of 01/17/13. There is no mass or organomegaly identified. There are numerous radiopaque tablets overlying the left upper quadrant. Surgical clips are again seen in the right upper quadrant and there are surgical coils overlying the pubic rami. IMPRESSION: 1. The bowel gas pattern is nonspecific. There is no acute abnormality identified. 2. There does appear to be a fair amount of fecal material in the transverse colon. Dictated by: Dictated on workstation # [id number]
== END 2017-06-28 23:58 | disposition home or self-care (01) ==
LOC: EDUNIT# 21:01 → ER 21:03
DX: R07.89 Other chest pain (principal); R10.13 Epigastric pain; E87.6 Hypokalemia; G43.909 Migraine, unspecified, not intractable, without status migrainosus; K21.9 Gastro-esophageal reflux disease without esophagitis; E78.00 Pure hypercholesterolemia, unspecified; I11.0 Hypertensive heart disease with heart failure; I50.30 Unspecified diastolic (congestive) heart failure; F41.9 Anxiety disorder, unspecified; F32.9 Major depressive disorder, single episode, unspecified; Z87.59 Personal history of other complications of pregnancy, childbirth and the puerperium; Z87.19 Personal history of other diseases of the digestive system; Z87.440 Personal history of urinary (tract) infections; Z90.710 Acquired absence of both cervix and uterus; Z80.51 Family history of malignant neoplasm of kidney; Z82.49 Family history of ischemic heart disease and other diseases of the circulatory system; Z90.89 Acquired absence of other organs
CPT/HCPCS: 36415; 71010; 74000; 80053; 81000; 83690; 83735; 83874; 84484; 85025; 85610; 85730; 93005; 93041

== ENCOUNTER → 2018-06-29 | Outpatient (CLI) | payer BC ==
--- NOTE | 2018-06-29 12:43 | Diagnostic Imaging Report ---
INDICATION: Digital mammogram bilateral screening with 3D tomosynthesis. This study was compared to the prior exams of 04/30/2015. At this time, there are no current complaints. The current study was also evaluated with a Computer Aided Detection (CAD) system. 3-D tomosynthesis was also performed and reviewed. FINDINGS: There are scattered fibroglandular densities in both breasts which could obscure a lesion. Overall, there does not appear to have been any significant change when compared to the prior exam. No primary or secondary sign of malignancy is noted. 3D tomographic images fail to show any sign of malignancy. IMPRESSION: 1. There is no evidence of malignancy. 2. The patient should have her annual screening mammogram on schedule in June of 2019. ACR BI-RADS Category 1: Negative. Result letter will be mailed to the patient. Note: At least 10% of breast cancer is not imaged by mammography. Dictated by: Dictated on workstation # [id number]
== END ==
LOC: RAD 09:50
PROVIDERS: ATTEND Nurse Practitioner Family
DX: Z12.31 Encounter for screening mammogram for malignant neoplasm of breast (principal)
CPT/HCPCS: 77067

== ENCOUNTER → 2020-03-11 | Outpatient (CLI) | payer BC ==
--- NOTE | 2020-03-11 13:09 | Diagnostic Imaging Report ---
INDICATION: Routine screening. COMPARISON: 06/29/2018 and 04/30/2015. TECHNIQUE: 2D and 3D bilateral screening mammography was performed with CAD. FINDINGS: Scattered fibroglandular densities are identified bilaterally. There are benign calcifications bilaterally. The overall parenchymal pattern appears to be stable. No mass or malignant appearing microcalcifications are seen. The axillae are unremarkable. IMPRESSION: No mammographic features suspicious for malignancy are identified. ACR BI-RADS Category 2: Benign findings. Result letter will be mailed to the patient. Note: At least 10% of breast cancer is not imaged by mammography. Dictated by: Dictated on workstation # [id number]
== END ==
LOC: RAD 09:36
PROVIDERS: ATTEND Nurse Practitioner Family
DX: Z12.31 Encounter for screening mammogram for malignant neoplasm of breast (principal)
CPT/HCPCS: 77063; 77067

== ENCOUNTER → 2021-06-21 | Outpatient (CLI) | payer BC ==
--- NOTE | 2021-06-22 12:30 | Diagnostic Imaging Report ---
INDICATION: Routine screening. Comparison is made with prior mammogram from 03/11/2020 and 06/29/2018. 2-D and 3-D bilateral bilateral screening mammography was performed with CAD. Scattered fibroglandular densities are identified bilaterally. The parenchymal pattern is stable. No mass or malignant-appearing microcalcifications are seen. There are benign calcifications. The axillae are unremarkable. IMPRESSION: BI-RADS Category 2 No mammographic features suspicious for malignancy are identified. ACR BI-RADS Category 2: Benign findings. Result letter will be mailed to the patient. Note: At least 10% of breast cancer is not imaged by mammography. Dictated by: Dictated on workstation # [id number]
== END ==
LOC: RAD 15:30
PROVIDERS: ATTEND Family Medicine
DX: Z12.31 Encounter for screening mammogram for malignant neoplasm of breast (principal)
CPT/HCPCS: 77063; 77067

== ENCOUNTER → 2022-03-22 | Outpatient (CLI) | payer BC ==
[~2022-03-22] MED LIST changes: -VENL150C PO; +VENL150C3 PO
--- NOTE | 2022-03-22 13:16 | Diagnostic Imaging Report ---
INDICATION: R09.89- TECHNIQUE: Grayscale sonographic images of the thyroid gland. CORRELATION STUDY: None FINDINGS: RIGHT LOBE: 5.7 x 2.0 x 1.7 cm. There is normal echotexture about the right lobe. LEFT LOBE: 4.9 x 1.6 x 1.7 cm. There is normal echotexture about the left lobe. Isthmus appears unremarkable. IMPRESSION: Thyroid gland is mildly enlarged. No discrete solid or cystic nodule. (Normal gland size: 4-5 x 2 x 2 cm) Dictated by: Dictated on workstation # [id number]
== END ==
LOC: RAD 10:48
PROVIDERS: ATTEND Nurse Practitioner Family
DX: E04.9 Nontoxic goiter, unspecified (principal); R09.89 Other specified symptoms and signs involving the circulatory and respiratory systems
CPT/HCPCS: 76536

== ENCOUNTER 2022-05-31 19:27 | Emergency (ER) | payer BC ==
[~2022-05-31] VITALS: Ht 170.2 cm; Wt 86.2 kg
[2022-05-31 19:55] VITALS: BP 119/80
--- NOTE | 2022-05-31 20:23 | ED Lower Extremity ---
General Chief Complaint: Lower Extremity Stated Complaint: R KNEE PAIN Nursing Triage Note: pt to room with use of personal crutches. 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 pt states she felt her right knee "bend backward and it popped." pt reports she has been unable to bear weight. when she attempted to bear weight, she states it shot a pain up to her right hip. pt states she has had two previous miniscus surgeries to right knee and states she "worries this feels worse than that." Source: patient History of Present Illness Date Seen by Provider: May 31, 2022 Time Seen by Provider: 20:10 Initial Comments PT ARRIVES VIA POV FROM HOME, WITH CRUTCHES (OLD AND ARE FALLING APART) JUST PRIOR TO ARRIVAL, SHE WAS WALKING IN HER HALLWAY AT HOME, AND HER DOG CAME AROUND THE CORNER AND RAN INTO HER RIGHT KNEE--FRONT IMPACT. STATES HER KNEE BENT BACKWARDS AND IT POPPED CANNOT BEAR WEIGHT ON RIGHT LEG PAIN IS TO INFERIOR/LATERAL ASPECT OF KNEE, AND TO INFERIOR/MEDIAL ASPECT OF KNEE. NO PARESTHESIAS OR MOTOR DEFICITS NO OTHER INJURIES FROM THE INCIDENT PT HAS HAD 2 PREVIOUS MENISCUS SURGERIES ON THIS KNEE BY DR. HARRIS--LAST ONE WAS IN 2017. Allergies and Home Medications Allergies Coded Allergies: Penicillins (Verified Allergy, Unknown, 03/15/17) hydroxychloroquine (Verified Allergy, Unknown, 07/01/15) Patient Home Medication List Home Medication List Reviewed: Yes Atorvastatin Calcium (Atorvastatin Calcium) 10 Mg Tablet, 10 MG PO three times a week, (Reported) Entered as Reported by: EDI BROWN on 03/14/17 1017 Biotin (Biotin) 2,500 Mcg Capsule, 2,500 MCG PO DAILY, (Reported) Entered as Reported by: VASU BRYANT on 10/11/14 1653 Butalb/Acetaminophen/Caffeine (Yctmvs-Oxgnyhml-Kixb 50-300-40) 1 Each Capsule, 1 CAP PO Q8H PRN for HEADACHE, (Reported) Entered as Reported by: BENSON LORA on 07/01/15 1317 Hydrochlorothiazide (Hydrochlorothiazide) 25 Mg Tablet, 25 MG PO DAILY, (Reported) Entered as Reported by: EDI BROWN on 03/14/17 1017 Hydrocodone/Acetaminophen (Hydrocodone-Acetamin 5-325 mg) 5 Mg-325 Mg Tablet, 1 EACH PO Q4-6 HOURS PRN for PAIN Prescribed by: HEMANT ESTRADA on 05/31/222107 Lactobacillus Acidophilus (Probiotic) 1 Each Capsule, 1 TAB PO DAILY, (Reported) Entered as Reported by: EDI BROWN on 08/26/13 1143 Methylphenidate HCl (Ritalin) 20 Mg Tablet, 20 MG PO BID, (Reported) Entered as Reported by: EDI BROWN on 03/14/17 1017 Multivit with Calcium,Iron,Min (Women's Daily Formula) 1 Each Tablet, 1 EACH PO DAILY, (Reported) Entered as Reported by: EDI BROWN on 03/14/17 1017 Pantoprazole Sodium (Protonix) 40 Mg Tablet.dr, 40 MG PO DAILY Prescribed by: SALINA BARKLEY on 03/15/17 1657 Quetiapine Fumarate (Seroquel) 25 Mg Tablet, 25 MG PO HS, (Reported) Entered as Reported by: EDI BROWN on 03/14/17 1017 Ubidecarenone (Coq-10) 100 Mg Capsule, 100 MG PO DAILY, (Reported) Entered as Reported by: EDI BROWN on 03/14/17 1017 Venlafaxine HCl (Effexor Xr) 150 Mg Cap.er.24h, 150 MG PO DAILY, (Reported) Entered as Reported by: EDI BROWN on 03/14/17 1017 Review of Systems Constitutional: no symptoms reported : No Control/STD Prophylaxis: Other (HYSTERECTOMY) Musculoskeletal: see HPI Skin: no symptoms reported Psychiatric/Neurological: No Symptoms Reported Past Bamnubf-Iylnvb-Usmivc Hx Immunizations Up To Date Tetanus Booster (TDap): Less than 5yrs PED Vaccines UTD: No Seasonal Allergies Seasonal Allergies: Yes Past Medical History Surgeries: Yes (7 eyes, OVARAIAN CYST-LEFT, C5-7, deviated septum, r knee, r ankle) Adenoidectomy, Section, Eye Surgery, Gallbladder, Hysterectomy, Orthopedic, Tonsillectomy Respiratory: No Currently Using CPAP: No Currently Using BIPAP: No Cardiac: Yes (MITRAL VALVE PROLAPSE, diastolic dysfunction) High Cholesterol, Hypertension, Irregular Heartbeat Neurological: Yes (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, lyme's ) Headaches /Migraines Reproductive Disorders: No 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 Sexually Transmitted Disease: No HIV/AIDS: No Genitourinary: Yes UTI-Chronic Gastrointestinal: Yes (history of "stomach diverticuli") Gastroesophageal Reflux Musculoskeletal: Yes (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; 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; bulging disc lumbar spin) Degenerate Disk Disease, Arthritis, Scoliosis Endocrine: Yes Adrenal Disease Loss of Vision: Left Cancer: No Psychosocial: Yes Sleep Difficulties, Anxiety, Depression Integumentary: No Blood Disorders: Yes (hx of HYPERCOAGULATION) Family Medical History Cardiovascular disease 19 FATHER Diabetes mellitus 19 MOTHER FH: kidney cancer 19 MOTHER Heart Disease, CAD Under 55 Years Old, Diabetes, Lung Disease Rheumatoid arthritis in mother Physical Exam Vital Signs Vital Signs - First Documented 05/31/22 19:55 Temp 36.8 Pulse 90 Resp 14 B/P (MAP) 119/80 (93) Pulse Ox 99 Capillary Refill : Height, Weight, BMI Height: 5'7.00" Weight: 170lbs. 0.0oz. [id number]; 29.00 BMI Method:Stated General Appearance: WD/WN, no apparent distress Hips: bilateral hip normal inspection Legs: bilateral leg normal inspection Knees: left knee normal inspection; right knee bone tenderness (TENDERNESS TO INFERIOR/LATERAL AND INFERIOR/MEDIAL ASPECTS OF KNEE, WITH SLIGHT SWELLING TO INFERIOR/MEDIAL ASPECT. ), right knee pain, right knee soft tissue tenderness, right knee swelling (VERY SLIGHT SWELLING TO INFERIOR/MEDIAL ASPECT OF RIGHT KNEE. ), right knee other (UNABLE TO ASSESS LIGAMENT LAXITY DUE TO PAIN. DISTAL MOTOR/SENSORY/VASCULAR INTACT) Ankles: bilateral ankle normal inspection Feet: bilateral foot normal inspection Neurologic/Tendon: normal sensation, normal motor functions, normal tendon func tions Neurologic/Psychiatric: fly frame tender II-XII nml as tested, no motor/sensory deficits, alert, normal mood/affect, oriented x 3 Skin: normal color, warm/dry; No ecchymosis Procedures/Interventions Splinting and Joint Reduction : Alphonse wrap: Yes Immobilizers: 24 inch Knee Progress/Results/Core Measures Results/Orders My Orders Orders - HEMANT ESTRADA DO Knee, Right, 4 Views Or > (05/31/22 20:12) Alphonse Bandage (05/31/22 21:03) Crutches (05/31/22 21:03) Knee Immobilizer (05/31/22 21:03) Rx-Hydrocodone/Apap 5-325 Mg (Rx-Vicodin (05/31/22 21:15) Medications Given in ED Current Medications Medications Dose Ordered Sig/Jose Carlos Route Start Time Stop Time Status Last Admin Dose Admin Acetaminophen/ Hydrocodone Bitart 1 ea Q4H PRN PO 05/31/22 21:15 05/31/22 21:38 DC 05/31/22 21:26 1 EA Vital Signs/I&O 05/31/22 19:55 Temp 36.8 Pulse 90 Resp 14 B/P (MAP) 119/80 (93) Pulse Ox 99 Blood Pressure Mean: 93 Diagnostic Imaging Comments XRAYS RIGHT KNEE--PER RADIOLOGIST REPORT AT 2057 There appears be a nondisplaced fracture of the lateral portion of the fibular head, best seen on the oblique view. No other acute fractures are identified. There are chronic calcifications adjacent to the medial femoral condyle IMPRESSION: Acute non-displaced fracture of the lateral portion of the fibular head. Departure Impression Primary Impression: Closed fracture of proximal end of right fibula Additional Impression: POSSIBLE INTERNAL DERANGEMENT OF RIGHT KNEE Disposition: HOME, SELF-CARE Condition: Stable Departure-Patient Inst. Decision time for Depature: 21:05 Referrals: BHUPENDRA DESAI MD (PCP/Family) Primary Care Physician IRVING HARRIS MD Patient Instructions: Fibula Fracture (DC), Going Up and Down Curbs or Stairs With a Walker or Crutches, How to Use Crutches, How to Use an Elastic Bandage, Knee Immobilizer (DC) Add. Discharge Instructions: ICE TO AREA AT 20 MINUTE INTERVALS ALPHONSE WRAP, KNEE IMMOBILIZER AND CRUTCHES AT ALL TIMES ELEVATE LEG MUCH POSSIBLE FOLLOW UP WITH DR. HARRIS THIS WEEK FOR FURTHER CARE--CALL IN THE MORNING TO SCHEDULE APPOINTMENT All discharge instructions reviewed with patient and/or family. Voiced understanding. Scripts Hydrocodone/Acetaminophen (Hydrocodone-Acetamin 5-325 mg) 5 Mg-325 Mg Tablet 1 EACH PO Q4-6 HOURS PRN for PAIN, #20 TAB Prov: HEMANT ESTRADA DO 05/31/22 HEMANT ESTRADA DO May 31, 2022 20:23
--- NOTE | 2022-05-31 20:56 | Diagnostic Imaging Report ---
INDICATION: Right knee pain post injury 4 views of the right knee are obtained. There appears be a nondisplaced fracture of the lateral portion of the fibular head, best seen on the oblique view. No other acute fractures are identified. There are chronic calcifications adjacent to the medial femoral condyle IMPRESSION: Acute non-displaced fracture of the lateral portion of the fibular head. Dictated by: Dictated on workstation # [id number]
[2022-05-31] MEDS ORDERED: ACHD5005 PO (21:07)
== END 2022-05-31 21:38 | disposition home or self-care (01) ==
LOC: EDUNIT# 19:27 → ER 19:28
DX: S82.831A Other fracture of upper and lower end of right fibula, initial encounter for closed fracture (principal); Z98.890 Other specified postprocedural states; W54.1XXA Struck by dog, initial encounter; Y92.008 Other place in unspecified non-institutional (private) residence as the place of occurrence of the external cause
CPT/HCPCS: 73564

== ENCOUNTER → 2023-08-21 | Outpatient (CLI) | payer BC ==
[~2023-08-21] MED LIST changes: +ACHD5005 PO; +HOLD METFORMIN - RECEIVED CONTRAST 20 ML VIAL IV SCH; +IOHEXOL 350 MG/ML 100 ML (OMNIPAQUE 350) VIAL IV ONE; +NS 100 ML (IVPB) BAG IV ONE
--- NOTE | 2023-08-21 10:27 | Diagnostic Imaging Report ---
PROCEDURE: CT of the abdomen with and without contrast and CT of the pelvis with contrast. TECHNIQUE: Precontrast acquisitions were acquired through the abdomen. Multiple contiguous axial images were obtained through the abdomen and pelvis after administration of intravenous contrast. Auto Exposure Controls were utilized during the CT exam to meet ALARA standards for radiation dose reduction. INDICATION: History of adrenal mass. Follow-up. COMPARISON: CT chest dated 03/07/2017 FINDINGS: Included portions of the lung bases are clear. CT ABDOMEN: The liver, adrenal glands, kidneys, spleen, and pancreas have a normal CT appearance. Small gastric diverticulum is noted at the fundus. Small bowel loops are nondilated. Normal appendix is identified. Moderate air and stool is noted scattered throughout the colon. There is no loculated fluid collection, free fluid or free air within the abdomen. No abnormal mesenteric or retroperitoneal adenopathy is identified. Osseous structures show no acute abnormalities. CT PELVIS: Urinary bladder is unopacified. No calculi are seen within urinary bladder. There is no loculated fluid collection, free fluid, nor free air within the pelvis. No abnormal adenopathy is identified. Osseous structures show no acute abnormalities. IMPRESSION: 1. The adrenal glands have a normal CT appearance bilaterally. 2. No other acute abnormality seen within the abdomen or pelvis. 3. Moderate colonic air and stool. Please correlate for constipation. Dictated by: Dictated on workstation # [id number]
== END ==
LOC: RAD 08:25
PROVIDERS: ATTEND Nurse Practitioner Family
DX: E27.8 Other specified disorders of adrenal gland (principal); K59.00 Constipation, unspecified
CPT/HCPCS: 74178